=== PATIENT | male | born 1970 | race Caucasian/White ===

== ENCOUNTER 2019-10-13 15:45 | Outpatient (CLI) | payer OTHER, SELFPAY ==
--- NOTE | 2019-10-13 | XR_ITS ---
WS: [id number] RIGHT FOOT: 3 VIEW(S) TECHNIQUE: PA, oblique and lateral. HISTORY: RIGHT FOOT SPRAIN COMPARISON: 08/10/2017 No acute fracture or dislocation. Spurring along the dorsal surface of the anterior talar process. Normal tarsal/metatarsal alignment. Mild soft tissue edema at the ankle. XR/XR foot RT min 3V* [id number] IMPRESSION: Mild soft tissue edema at the ankle. Foot is negative for fracture or interrupt ion of the Lisfranc joint.
== END 2019-10-13 15:46 | disposition home or self-care (01) ==
LOC: RADOUTREAD 10-14 07:28
PROVIDERS: Family Provider Family Medicine; Visit Provider Family Medicine
DX: S93.601A Unspecified sprain of right foot, initial encounter (principal); W01.0XXA Fall on same level from slipping, tripping and stumbling without subsequent striking against object, initial encounter

== ENCOUNTER → 2020-08-14 12:20 | Outpatient (BNVA) | payer OTHER, SELFPAY | PROVIDERS: Family Provider Family Medicine; Visit Provider Specialist | DX: G56.03 Carpal tunnel syndrome, bilateral upper limbs (principal); R20.0 Anesthesia of skin; R20.2 Paresthesia of skin | CPT/HCPCS: 95910 ==

== ENCOUNTER 2020-12-18 12:52 | Observation (INO) | payer BC, SELFPAY ==
[2020-12-18] VITALS (8 sets, daily range): BP systolic 119–140; BP diastolic 85–99; PULSE 85–104; RESP 16–20; TEMP 37–37.3; O2SAT 95–100; BMI 35.3
--- NOTE | 2020-12-18 13:23 | ED_ITS ---
HPI - SOB/Dyspnea General: Chief Complaint: Shortness of Breath/Dyspnea Stated Complaint: Sent from for SOB Time Seen by Provider: 12/18/20 13:13 History of Present Illness: HPI Narrative: 50 year old male presents to the ED from [facility] due to elevated d-dimer of 8.2 and SOB. Patient complaining of shortness of breath on exertion for the past week. He states he did have a fever 8-9 days ago. He currently denies chest pain, fever, vomiting, or leg pain. Tested negative for COVID today on a rapid antigen test MD elicited complaint: shortness of breath Onset (ago): week(s) (one) Context: occurred during exertion Timing: other (on exertion) Exacerbating factors: exertion and movement Relieving factors: rest Associated symptoms: Reports no associated symptoms; Deny abdominal pain, chest pain, fever(s), nausea or vomiting Review of Systems Const: Denies: fever(s) Card: Denies: chest pain Resp: Denies: productive cough or non-productive cough GI: Denies: abdominal pain, nausea, vomiting, hematemesis or coffee ground emesis : Denies: flank pain, urinary frequency or urinary urgency [facility] ED PFSH: Medical History (Updated 12/18/20 @ 15:16 by Meenakshi Aceves MD) Former smoker Numbness and tingling in both hands Physical Exam Const: COMMON NORMALS: no acute distress GENERAL APPEARANCE: cooperative and comfortable ORIENTATION/CONSCIOUSNESS: Yes awake, Yes oriented to person, Yes oriented to place and Yes oriented to time HENMT: COMMON NORMALS: normocephalic, atraumatic and hearing grossly normal bilaterally HEAD & SCALP: normocephalic and atraumatic Resp: COMMON NORMALS: normal respiratory effort, No retractions, No use of accessory muscles and clear to auscultation bilaterally AUSCULTATION: clear to auscultation bilaterally Cardio: COMMON NORMALS: regular rate, regular rhythm and No murmurs present (Cardio) RATE: regular rate RHYTHM: regular rhythm GI: COMMON NORMALS: Soft to palpation AUSCULTATION: Yes normoactive bowel sounds PALPATION: Yes Soft to palpation, No Tenderness to palpation present (GI) and No Guarding due to palpation present (GI) Extremity: COMMON NORMALS: no calf tenderness Neuro: SENSORIUM/ORIENTATION: Yes oriented to person, Yes oriented to place and Yes oriented to time Skin: COMMON NORMALS: no rashes or lesions noted GENERAL SKIN EXAM: no rashes or lesions noted Course Vital Signs: Vital signs: Vital Signs Temperature 98.6 F 12/18/20 13:00 Pulse Rate 98 12/18/20 14:55 Respiratory Rate 18 12/18/20 14:55 Blood Pressure 119/85 12/18/20 14:55 Pulse Oximetry 99 12/18/20 14:55 MDM - SOB/Dyspnea MDM Narrative: Medical decision making narrative: Patient has fairly extensive right-sided clot burden. Nothing that is a saddle emboli do not believe he needs a embolectomy. We will go ahead and heparinize him admit would need to be transitioned to oral anticoagulation at some point echo and venous duplex of lower extremities. Patient had a fever about 8 or 9 days ago since possible that this is a post Covid event is also possible as a result of incapacitation from a knee injection that he had in late October. At that time he had a stem cell injection in the left knee he had a lot of swelling and was light up for 5 days states since then that leg has been aching. Stuck to Dr. Aceves and patient's orders are written. Lab Data: Labs: Lab Results 12/18/20 12/18/20 12/18/20 Range/Units 13:18 13:18 13:18 WBC 10.0 (4.0-10.0) 10^3/ uL RBC 5.07 (4.1-5.3) 10^6/u L Hgb 15.2 (11.7-16.6) g/dL Hct 45.0 (42.0-52.0) % MCV 88.8 (80-94) fL MCH 30.0 (28.0-34.0) pg MCHC 33.8 (30.0-36.0) g/dL RDW 12.2 (12.1-15.1) % Plt Count 259 (130-400) 10^3/c mm MPV 11.3 H (7.4-10.4) fL Neut % (Auto) 70.5 % Lymph % (Auto) 18.1 % York % (Auto) 8.6 % Eos % (Auto) 1.6 % Baso % (Auto) 0.6 % Neut # (Auto) 7.04 (1.8-7.7) 10^3/u L Lymph # (Auto) 1.8 (0.8-4.8) 10^3/u L York # (Auto) 0.9 (0.2-0.9) 10^3/u L Eos # (Auto) 0.2 (0.0-0.8) 10^3/u L Baso # (Auto) 0.1 (0.0-0.1) 10^3/u L Nucleated RBC % (a uto) 0 % Nucleated RBCs # 0.0 /100WBC PT 14.00 (12.1-14.9) SECO NDS INR 1.05 (0.8-1.2) APTT 29.1 (23.9-36.7) SECO NDS Specimen Type Sample Site ABG pH (7.35-7.45) ABG pCO2 (35-45) mmHg ABG pO2 (80.0-100.0) mmH g ABG HCO3 (22-26) mmol/L ABG O2 Saturation ABG Base Excess (-2.0-2.0) mmol/ L Jimbo Test A-a O2 Gradient (5-10) mmHg Hematocrit (42-52) % Hgb O2 Saturation (95-100) % Carboxyhemoglobin (0.4-20.1) %THgb Methemoglobin (0.4-1.5) % Total Hemoglobin (14-18) g/dL Ionized Calcium (1.1-1.4) mmol/L O2 Delivery Device FiO2 % Asset Recovery Specialist ID Sodium 138 (136-145) mmol/L Potassium 4.2 (3.5-5.1) mmol/L Chloride 101 (98-107) mmol/L Carbon Dioxide 27 (22-29) mmol/L Anion Gap 14.2 (5-19) BUN 17 (6-20) mg/dL Creatinine 1.0 (0.7-1.2) mg/dL GFR Calculation 79.8 L (90-130) mL/min Glucose 88 (65-115) mg/dL Calculated Osmolal ity 287 (285-295) mOsm/k g Calcium 9.1 (8.5-10.5) mg/dL Total Bilirubin 0.7 (0.15-1.2) mg/dL AST 23 (0-40) U/L ALT 27 (0-41) U/L Alkaline Phosphata se 54 (40-130) IU/L Total Protein 7.3 (6.6-8.7) g/dL Albumin 4.3 (3.5-5.2) g/dL Globulin 3.0 (1.3-4.6) g/dL 12/18/20 Range/Units 13:48 WBC (4.0-10.0) 10^3/ uL RBC (4.1-5.3) 10^6/u L Hgb (11.7-16.6) g/dL Hct (42.0-52.0) % MCV (80-94) fL MCH (28.0-34.0) pg MCHC (30.0-36.0) g/dL RDW (12.1-15.1) % Plt Count (130-400) 10^3/c mm MPV (7.4-10.4) fL Neut % (Auto) % Lymph % (Auto) % York % (Auto) % Eos % (Auto) % Baso % (Auto) % Neut # (Auto) (1.8-7.7) 10^3/u L Lymph # (Auto) (0.8-4.8) 10^3/u L York # (Auto) (0.2-0.9) 10^3/u L Eos # (Auto) (0.0-0.8) 10^3/u L Baso # (Auto) (0.0-0.1) 10^3/u L Nucleated RBC % (a uto) % Nucleated RBCs # /100WBC PT (12.1-14.9) SECO NDS INR (0.8-1.2) APTT (23.9-36.7) SECO NDS Specimen Type Arterial Sample Site Radial, left ABG pH 7.44 (7.35-7.45) ABG pCO2 36.8 (35-45) mmHg ABG pO2 69.7 L (80.0-100.0) mmH g ABG HCO3 25.0 (22-26) mmol/L ABG O2 Saturation 95.2 ABG Base Excess 1.1 (-2.0-2.0) mmol/ L Jimbo Test Pos A-a O2 Gradient 4.3 L (5-10) mmHg Hematocrit 44.1 (42-52) % Hgb O2 Saturation 93.9 L (95-100) % Carboxyhemoglobin 1.0 (0.4-20.1) %THgb Methemoglobin 0.4 (0.4-1.5) % Total Hemoglobin 14.4 (14-18) g/dL Ionized Calcium 1.2 (1.1-1.4) mmol/L O2 Delivery Device Room air FiO2 21.0 % Asset Recovery Specialist ID Cak Sodium 136.0 (136-145) mmol/L Potassium 4.1 (3.5-5.1) mmol/L Chloride (98-107) mmol/L Carbon Dioxide (22-29) mmol/L Anion Gap (5-19) BUN (6-20) mg/dL Creatinine (0.7-1.2) mg/dL GFR Calculation (90-130) mL/min Glucose 84.0 (65-115) mg/dL Calculated Osmolal ity (285-295) mOsm/k g Calcium (8.5-10.5) mg/dL Total Bilirubin (0.15-1.2) mg/dL AST (0-40) U/L ALT (0-41) U/L Alkaline Phosphata se (40-130) IU/L Total Protein (6.6-8.7) g/dL Albumin (3.5-5.2) g/dL Globulin (1.3-4.6) g/dL Discharge Plan Discharge Patient Disposition: Admitted As Inpatient Clinical Impression: Pulmonary embolism Condition: Stable Coding Level of Care Code ED Healthcare Educator for Chg Fwd Exam Detailed
--- NOTE | 2020-12-18 13:33 | CT_ITS ---
WS: [id number] CTA OF THE CHEST WITH PULMONARY EMBOLISM PROTOCOL TECHNIQUE: High-resolution contrast enhanced CTA of the chest with coronal and sagittal reformatted i mages with pulmonary embolism protocol. MIP images are also reviewed. CLINICAL INFORMATION: dyspna COMPARISON: CTA chest August 15, 2017 DLP: 1344.[address] scans at [facility] use at least one of these dose optimization techniques: automat ed exposure control; mA and/or kV adjustment per patient size (includes targeted exams where dose is matched to clinical indication); or iterative reconstruction. FINDINGS: Proximal main pulmonary arteries are normal. Filling defects in the distal right main pulmonary arter y and segmental and subsegmental pulmonary arteries bilaterally worse in the right lung and left lowe r lobe. Findings compatible with diffuse bilateral pulmonary emboli. Normal caliber thoracic aorta. N o pulmonary infarcts. No evidence of right heart strain. Lungs are well aerated. No acute pulmonary infiltrates. No focal pneumonia or pleural fluid. No medi astinal or hilar lymphadenopathy. No axillary lymphadenopathy. Adrenal glands are normal. Normal GE j unction. Gallbladder is contracted. CT/CT angio chest PE protcl [id number] IMPRESSION: 1. Extensive bilateral pulmonary emboli in the distal right main pulmonary art feliciano extending into the segmental and subsegmental pulmonary arteries bilaterall y. No evidence of saddle embolus. 2. No pulmonary infarcts. No evidence of right heart strain. 3. Lungs are well aerated. No acute pulmonary infiltrates. 4. No other significant findings. Notified Masood Peralta DO at 12/18/2020 2:39 PM.
[2020-12-18 14:00] LABS: Blood Gas Allen Test Pos; Blood Gas Operator Identificat CAK; Blood Gas Sample Site Radial, left; Blood Gas Sample Type Arterial; Ionized Calcium Level - ABG 1.2 mmol/L (1.1-1.4); Methemoglobin 0.4 % (0.4-1.5); Oxygen Device ROOM AIR
[2020-12-18] MEDS: iohexol 350 mg/mL 100 mL Btl IV ×2 (14:11→14:12)
[2020-12-18 14:16] LABS: ABG PCO2 36.8 mmHg (35-45); ABG PH Result 7.44 (7.35-7.45); Alveolar-Arterial Oxygen Gradi 4.3 mmHg (5-10); Arterial Blood Gas Hematocrit 44.1 % (42-52); Base Excess ABG 1.1 mmol/L (-2.0-2.0); HGB O2 Sat 93.9 % (95-100); Oxygen Saturation ABG 95.2; PO2 ABG 69.7 mmHg (80.0-100.0); Potassium Level - ABG 4.1 mmol/L (3.5-5.0); Total Hemoglobin 14.4 g/dL (14-18)
[2020-12-18 14:34] LABS: Basophils # 0.1 10^3/uL (0.0-0.1); Basophils % 0.6 %; Eosinophils # 0.2 10^3/uL (0.0-0.8); Eosinophils % 1.6 %; Hemoglobin 15.2 g/dL (11.7-16.6); Lymphocytes # 1.8 10^3/uL (0.8-4.8); Lymphocytes % 18.1 %; Mean Corpuscular HGB Conc 33.8 g/dL (30.0-36.0); Mean Corpuscular Volume 88.8 fL (80-94); Mean Platelet Volume 11.3 fL (7.4-10.4); Monocytes # 0.9 10^3/uL (0.2-0.9); Monocytes % 8.6 %; Neutrophils # 7.04 10^3/uL (1.8-7.7); Neutrophils % 70.5 %; Nucleated Red Blood Cells % 0 %; Platelet Count 259 10^3/cmm (130-400); Red Blood Count 5.07 10^6/uL (4.1-5.3); Red Cell Distribution Width 12.2 % (12.1-15.1)
[2020-12-18 14:47] LABS: Alanine Aminotransferase 27 U/L (0-41); Albumin Level 4.3 g/dL (3.5-5.2); Alkaline Phosphatase 54 IU/L (40-130); Anion Gap 14.2 (5-19); Aspartate Amino Transferase 23 U/L (0-40); Blood Urea Nitrogen 17 mg/dL (6-20); Calcium 9.1 mg/dL (8.5-10.5); Carbon Dioxide 27 mmol/L (22-29); Chloride 101 mmol/L (98-107); Glomerular Filtration Rate 79.8 mL/min (90-130); Glucose 88 mg/dL (65-115); Osmolality Calculated 287 mOsm/kg (285-295); Potassium 4.2 mmol/L (3.5-5.1); Sodium 138 mmol/L (136-145); Total Bilirubin 0.7 mg/dL (0.15-1.2); Total Protein 7.3 g/dL (6.6-8.7)
[2020-12-18] MEDS: heparin 5,000 unit/mL INJ 1 mL IV (14:50)
[2020-12-18] MEDS: heparin drip 25,000 UNIT/500 ML PREMIX 31.2 UNIT IV (14:51)
[2020-12-18 15:06] LABS: INR 1.05 (0.8-1.2)
[2020-12-18 15:07] LABS: Partial Thromboplastin Time 29.1 SECONDS (23.9-36.7)
--- NOTE | 2020-12-18 15:14 | P.HP_ITS ---
Providers/Chief Complaint Primary Care Provider: Manolo Norris MD Chief Complaint: Sent from for SOB History of Present Illness Camacho Zuleta is a 50 year old male who does not have significant past medical history other than hypertension presented today with chief complaint of shortness of breath. Patient went to urgent care clinic for chief complaint of shortness of breath today. Patient is stating that for last several days he has been experiencing shortness of breath on exertion and for 7 days he noticed low- grade fever as well no one else is sick at home, Covid antigen was negative at the clinic today. No productive cough, diarrhea chest pain orthopnea or PND. Patient is stating that on October 18 he received stem cell injection in the left knee and after that he was immobile for about 2 weeks and was not able to move his leg at all because of swelling after the injection. He noticed pain in his calf muscle around the midpoint which was radiating towards his knee and then he started feeling pain above his knee. He made his sports medicine doctor aware of this pain however no Doppler was requested at that time. He is also endorsing history of clotting disorder in the family his father is on Coumadin however never had any diagnosis of factor V Leyden mutation. He is stating that he recently changed his diet and lost about 10 pounds as well in last 1 month, and he also noticed night sweats in last 48 hours. Otherwise he is leading a very active lifestyle he works with [employer]. Diagnosis in the ER revealed high D-dimer CT revealed high clot burden for bilateral PE, I have requested BNP and troponin, venous Doppler echo has been requested patient was symptomatic free saturating well on room air. Considering high clot burden he was admitted and was started on heparin drip. Review of Systems Const: Denies: fever(s) or chills Eyes: Denies: change in vision ENMT: Denies: throat pain Card: Denies: chest pain Resp: Denies: non-productive cough GI: Denies: abdominal pain or hematemesis : Denies: flank pain Musc: Denies: neck pain Skin/Breast: Denies: rash Neuro: Denies: headache(s) Psych: Denies: anxiety Endo: Denies: polyuria Neo/Lymph: Denies: easy bruising All/Imm: Denies: urticaria Medications/Allergies Home Medications Medication Instructions Recorded Confirmed Last Taken Type lisinopril 10 mg tablet 10 mg PO QAM 08/14/20 12/18/20 12/18/20 06:30 History cetirizine 10 mg PO QAM 12/18/20 12/18/20 12/18/20 06:30 History ibuprofen 400 mg PO PRN 12/18/20 12/18/20 Unknown History Allergies Allergy/AdvReac Type Severity Reaction Status Date / Time No Known Allergies Allergy Verified 12/18/20 13:32 PFSH Acute PFSH: Medical History (Updated 12/18/20 @ 17:01 by Meenakshi Aceves MD) Former smoker Hypertension Left knee pain Status post stem cell injection on October 18 by sports medicine Numbness and tingling in both hands Surgical History (Updated 12/18/20 @ 17:02 by Meenakshi Aceves MD) No pertinent past surgical history Family History (Updated 12/18/20 @ 17:02 by Meenakshi Aceves MD) Father Clotting disorder On Coumadin Social History (Updated 12/18/20 @ 17:02 by Meenakshi Aceves MD) Smoking and tobacco status: former smoker Alcohol intake: never Household members: spouse Housing: House Marital status: Current occupational status: employed Current occupation: Works for [employer] Vitals/I&O/Wt Last Vital Signs Temp 98.6 F 12/18/20 13:00 Pulse 98 12/18/20 14:55 Resp 18 12/18/20 14:55 BP 119/85 12/18/20 14:55 Pulse Ox 99 12/18/20 14:55 Weight last 48 hrs Weight 111.584 kg Physical Exam Narrative: EXAM NARRATIVE: Middle-age male Currently saturating well on room air No active discomfort S1-S2 no murmur appreciated Bilateral breath sounds without adventitious rhonchi or crackles no edema cooperative Abdomen soft nontender bowel sound present No joint swelling No calf tenderness Muscular, and obese Appropriate mood and affect EOMI, PERRLA GCS 15 Data : 12/18/20 13:18 12/18/20 13:18 A&P Assessment and plan (1) Pulmonary embolism: Status: Acute Additional A&P Information Provoked pulmonary embolism Patient led a sedentary lifestyle for 2 weeks after getting the injection, he is also complaining of calf muscle pain I do believe his symptoms started at that point and that is why he has such a huge clot burden with bilateral PEs rule out right heart strain with echo and will request BNP and troponin currently chest pain-free hemodynamically stable for support of preload I will keep him on normal saline at lower rate Start him on heparin On the day of discharge we will switch to Eliquis 10 twice daily and then 5 mg twice a day after 10 days Patient does endorse history of clots in his father he has older siblings who are fine, I am recommending him to follow-up with bed control specialist for now we are treating him for provoked pulmonary embolism for minimum of 6 months, he will need repeat imaging and follow-up with bed control specialist in order to decide whether he would need hypercoagulable work-up and long-term anticoagulation Covid PCR sent which is also associated with hypercoagulable state however Covid antigen negative History of hypertension: Currently normotensive continue lisinopril Regular diet DVT prophylaxis currently on heparin drip Full code Attestations Medical Necessity Statement*: Anticipating stay in the hospital cross more than 2 midnight currently he is on heparin drip for increased clot burden for symptomatic PE Time Spent in Patient Care: (>than 50% of time spent in counselling and/or direct pt care on unit) . 40mins Coding Level of Care Code Acute Exceptional Children Teacher for Kamran Ching Diagnoses Pulmonary embolism I26.99
--- NOTE | 2020-12-18 15:43 | PC.NURSE ---
COVID swab sent to lab at this time.
[2020-12-18 15:51] LABS: Troponin(5th) Baseline 8 ng/L (0-15)
[2020-12-18 15:58] LABS: NT Pro B Type Natriuretic Pept 29 pg/mL (0-125)
[2020-12-18 17:09] LABS: Troponin 5 2HR 8.06 ng/L (0-15); Troponin 5 2HR Delta 0.06 ABS# (0-10)
[2020-12-18 17:21] LABS: Thyroid Stimulating Hormone 0.28 uIU/mL (0.27-4.20)
[2020-12-18 17:56] LABS: Erythrocyte Sedimentation Rate 11 mm/hr (0-10)
[2020-12-18] MEDS: sodium chloride 0.9% 1,000 ML 30 ML IV (19:09)
--- NOTE | 2020-12-18 21:18 | ECG_ITS ---
[facility] Test Date: 2020-12-18 Pat Name: Camacho Zuleta Department: Room: Gender: Male Aws Architect: : 1970 Requested By: Meenakshi Aceves Order Number: [id number] Lala MD: Maribel Oakes M.D. Measurements Intervals [place] Rate: 101 P: 36 MN: 160 QRS: -18 QRSD: 88 T: 5 QT: 334 QTc: 434 Interpretive Statements SINUS TACHYCARDIA MODERATE VOLTAGE CRITERIA FOR LVH, CONSIDER NORMAL VARIANT [MEETS CRITERIA IN ONE OF: R(aVL), S(V1), R(V5), R(V5/V6)+S(V1)] Compared to ECG 08/15/2017 22:49:19 Sinus rhythm no longer present Electronically Signed On 12-19-2020 7:45:57 CDT by Maribel Oakes M.D. [id number]
[2020-12-19] VITALS: BP 125/87; PULSE 86; RESP 17; TEMP 36.8; O2SAT 95
[2020-12-19 03:56] VITALS: BP 132/86; PULSE 79; RESP 17; TEMP 36.8; O2SAT 96
[2020-12-19 04:10] LABS: Partial Thromboplastin Time 82.4 SECONDS (23.9-36.7)
--- NOTE | 2020-12-19 05:00 | USCV_ITS ---
Camacho Zuleta Age: 50 Gender: M : 1970 Exam Date: 12/19/2020 07:19 Ordering Phys: Masood Peralta DO Technologist: Ángel Parsons Exam Location: [facility] [place] Indication: PE HISTORY: Edema. PROCEDURES: The venous duplex Doppler examination of both lower extremities was performed in the standard fashion. The following venous structures were evaluated: common femoral vein, profunda vein, proximal portion of the greater saphenous vein, superficial femoral vein, and the popliteal vein. FINDINGS: DVT LT POP AND LT PERINEAL CONCLUSIONS Acute occlusive DVT left popliteal and left peroneal Normal Right Lower extremity Solitario Vegas MD (Electronically Signed) Final Date: 19 December 2020 09:41 S
--- NOTE | 2020-12-19 05:00 | USCV_ITS ---
Camacho Zuleta Age: 50 Gender: M : 1970 Exam Date: 12/19/2020 07:03 Ordering Phys: Masood Peralta DO Technologist: Ángel Parsons [place] [facility] [place]: PE BP: 145 / 84 HR: 78 Rhythm: Sinus Technical Quality: Fair MEASUREMENTS (Male / Female) Normal Values 2D ECHO LV Diastolic Diameter PLAX 5.0 cm 4.2 - 5.9 / 3.9 - 5.3 cm LV Systolic Diameter PLAX 3.3 cm IVS Diastolic Thickness 1.3 cm 0.6 - 1.0 / 0.6 - 0.9 cm IVS Systolic Thickness 1.2 cm LVPW Diastolic Thickness 1.2 cm 0.6 - 1.0 / 0.6 - 0.9 cm LVPW Systolic Thickness 1.2 cm LVOT Diameter 2.1 cm LV Ejection Fraction 2D Teich 61.5 % LA Diameter 3.7 cm LA Width 3.9 cm LA Height 5.8 cm RA Width 3.2 cm RA Height 5.4 cm M-MODE LV Diastolic Diameter MM 5.6 cm 4.2 - 5.9 / 3.9 - 5.3 cm LV Systolic Diameter MM 2.9 cm LV Ejection Fraction MM Teich 79.6 % IVS Diastolic Thickness MM 1.1 cm 0.6 - 1.0 / 0.6 - 0.9 cm IVS Systolic Thickness MM 2.0 cm LVPW Diastolic Thickness MM 1.0 cm 0.6 - 1.0 / 0.6 - 0.9 cm LVPW Systolic Thickness MM 1.9 cm RV Diastolic Diameter MM 1.8 cm Aortic Annulus Diameter 3.5 cm LA Ao Ratio MM 1.1 MV E Point Septal Separation 0.7 cm DOPPLER AV Peak Velocity 124.0 cm/s LVOT Peak Velocity 98.0 cm/s AV Area Cont Eq vti 2.4 cm squared AV Area Cont Eq pk 2.7 cm squared MV Area PHT 5.0 cm squared Mitral E to A Ratio 1.1 MV E' Velocity 48.0 cm/s Mitral E to MV E' Ratio 7.4 Mitral E to LV E' Lateral Ratio 6.0 Mitral E to LV E' Septal Ratio 9.8 TR Peak Velocity 129.5 cm/s TR Peak Gradient 6.7 mmHg TV Peak E Velocity 83.0 cm/s Right Atrial Pressure 3.0 mmHg Pulmonary Artery Systolic Pressu 9.7 mmHg FINDINGS Left Ventricle Normal left ventricular cavity size. Normal left ventricular systolic function. No regional wall motion abnormalities. Left ventricular ejection fraction is estimated at 65 %. Grade I/IV diastolic dysfunction (abnormal relaxation filling pattern), normal to mildly elevated filling pressures. Right Ventricle The right ventricle is normal in size and function. Right Atrium The right atrium is normal in size. Left Atrium The left atrium is normal in size. Mitral Valve Moderately thickened mitral valve. Moderate mitral annular calcification. No mitral valve stenosis. No mitral valve regurgitation. Aortic Valve Moderate aortic valve calcification. No aortic valve stenosis. No aortic valve regurgitation. Tricuspid Valve Structurally normal tricuspid valve without significant stenosis or regurgitation. Pulmonary artery systolic pressure is normal. Pulmonic Valve Structurally normal pulmonic valve without significant stenosis. There is no pulmonic regurgitation. Pericardium Normal pericardium without effusion. Aorta Normal ascending aorta dimension. CONCLUSIONS 1-Normal left ventricular cavity size. Normal left ventricular systolic function. No regional wall motion abnormalities. Left ventricular ejection fraction is estimated at 65 %. Grade I/IV diastolic dysfunction (abnormal relaxation filling pattern), normal to mildly elevated filling pressures. 2-Moderate aortic valve calcification. No aortic valve stenosis. No aortic valve regurgitation. 3-Moderately thickened mitral valve. Moderate mitral annular calcification. No mitral valve stenosis. No mitral valve regurgitation. 4-There is no pericardial effusion. 5-Pulmonary artery systolic pressure is within normal limits. 6-Right atrial pressure is around 5 mm of mercury. 7-There are no prior echocardiogram studies to compare. Meenakshi Crow MD (Electronically Signed) Final Date: 19 December 2020 20:25 S
[2020-12-19] MEDS: cetirizine 10 mg Tablet PO (05:56)
[2020-12-19] MEDS: lisinopril 10 mg Tablet PO (05:56)
[2020-12-19] MEDS: heparin drip 25,000 UNIT/500 ML PREMIX 29 UNIT IV (07:05)
[2020-12-19 07:55] VITALS: BP 130/88; PULSE 81; RESP 17; TEMP 36.8; O2SAT 96
[2020-12-19 10:47] LABS: Partial Thromboplastin Time 63.7 SECONDS (23.9-36.7)
--- NOTE | 2020-12-19 11:22 | PM.DCS ---
Discharge Providers Date of Admission: 12/18/20 15:14 Date of Discharge: December 19, 2020 Attending Provider at Admission: Meenakshi Aceves MD Attending Provider at Discharge: Meenakshi Aceves MD Primary Care Provider: Manolo Norris MD Diagnoses at Discharge Discharge Diagnosis (1) Pulmonary embolism: Status: Acute (2) DVT (deep venous thrombosis): Status: Acute Permanent problem details: Popliteal and peroneal, Left side Reason for Visit Reason for Visit: Sent from for SOB Hospital Course Hospital Course Camacho Zuleta is a 50 year old male who does not have significant past medical history other than hypertension presented today with chief complaint of shortness of breath. Patient went to urgent care clinic for chief complaint of shortness of breath today. Patient is stating that for last several days he has been experiencing shortness of breath on exertion and for 7 days he noticed low-grade fever as well no one else is sick at home, Covid antigen was negative at the clinic today. No productive cough, diarrhea chest pain orthopnea or PND. Patient is stating that on October 18 he received stem cell injection in the left knee and after that he was immobile for about 2 weeks and was not able to move his leg at all because of swelling after the injection. He noticed pain in his calf muscle around the midpoint which was radiating towards his knee and then he started feeling pain above his knee. He made his sports medicine doctor aware of this pain however no Doppler was requested at that time. He is also endorsing history of clotting disorder in the family his father is on Coumadin however never had any diagnosis of factor V Leyden mutation. He is stating that he recently changed his diet and lost about 10 pounds as well in last 1 month, and he also noticed night sweats in last 48 hours. Otherwise he is leading a very active lifestyle he works with [employer]. Diagnosis in the ER revealed high D-dimer CT revealed high clot burden for bilateral PE, I have requested BNP and troponin, venous Doppler echo has been requested patient was symptomatic free saturating well on room air. Considering high clot burden he was admitted and was started on heparin drip. Hospital course: Patient did well with heparin anticoagulation, he did not require any oxygenation, he is low risk for COVID-19 pneumonia, Doppler of left lower extremity revealed DVT of left peroneal and popliteal vessels, BNP not remarkable troponins were not significantly high which would qualify him for symptomatic pulmonary embolism. No signs of submassive PE. This is a provoked pulmonary embolism due to his recent sedentary 2 weeks after stem cell injection in left knee, considering high clot burden I am recommending Eliquis 10 twice daily for 10 days and then 5 mg for at least 6 months, follow-up with radiation safety officer to see if he would require hypercoagulable work-up Physical Exam Narrative: EXAM NARRATIVE: Middle-age male morbidly obese Saturating well on room air S1, S2 no murmur no heart failure EOMI, PERRLA No neurological deficit Abdomen soft nontender bowel sounds present Low symmetry no edema gangrene ulcer No active tenderness of calf muscle Discharge Data Data Completed and Pending: Completed Studies During Hospitalization Category Date Time Status CT angio chest PE protcl [id number] Stat Cat Scan 12/18/20 13:33 [place] [id number] Routin e Ultrasound 12/19/20 05:00 Completed Pending at discharge Category Date Time Status Coronavirus Test [facility] Lab 12/18/20 16:38 Received Platelet Count Q2 D Lab 12/20/20 04:00 Ordered Platelet Count Q2 D Lab 12/22/20 04:00 Ordered CV echo complete* [id number] Routine Ultrasound 12/19/20 05:00 Taken Labs from last 24 hours 12/19/20 12/19/20 12/18/20 10:28 03:31 20:47 WBC RBC Hgb Hct MCV MCH MCHC RDW Plt Count MPV Neut % (Auto) Lymph % (Auto) [place] % (Auto) Eos % (Auto) Baso % (Auto) Neut # (Auto) Lymph # (Auto) [place] # (Auto) Eos # (Auto) Baso # (Auto) Nucleated RBC % (a uto) Nucleated RBCs # ESR PT INR APTT 63.7 H 82.4 H 70.0 H D Specimen Type Sample Site ABG pH ABG pCO2 ABG pO2 ABG HCO3 ABG O2 Saturation ABG Base Excess Jimbo Test A-a O2 Gradient Hematocrit Hgb O2 Saturation Carboxyhemoglobin Methemoglobin Total Hemoglobin Ionized Calcium O2 Delivery Device FiO2 Stretcher Leveler Operator Helper ID Sodium Potassium Chloride Carbon Dioxide Anion Gap BUN Creatinine GFR Calculation Glucose Calculated Osmolal ity Calcium Total Bilirubin AST ALT Alkaline Phosphata se Troponin T Baselin e Troponin T 120 Min [place] Troponin T NT-Pro-B Natriuret Pep Total Protein Albumin Globulin TSH Nasal/Oral COVID-1 9 PCR 12/18/20 12/18/20 12/18/20 16:38 15:40 13:48 WBC RBC Hgb Hct MCV MCH MCHC RDW Plt Count MPV Neut % (Auto) Lymph % (Auto) [place] % (Auto) Eos % (Auto) Baso % (Auto) Neut # (Auto) Lymph # (Auto) [place] # (Auto) Eos # (Auto) Baso # (Auto) Nucleated RBC % (a uto) Nucleated RBCs # ESR PT INR APTT Specimen Type Arterial Sample Site Radial, left ABG pH 7.44 ABG pCO2 36.8 ABG pO2 69.7 L ABG HCO3 25.0 ABG O2 Saturation 95.2 ABG Base Excess 1.1 Jimbo Test Pos A-a O2 Gradient 4.3 L Hematocrit 44.1 Hgb O2 Saturation 93.9 L Carboxyhemoglobin 1.0 Methemoglobin 0.4 Total Hemoglobin 14.4 Ionized Calcium 1.2 O2 Delivery Device Room air FiO2 21.0 Stretcher Leveler Operator Helper ID Cak Sodium 136.0 Potassium 4.1 Chloride Carbon Dioxide Anion Gap BUN Creatinine GFR Calculation Glucose 84.0 Calculated Osmolal ity Calcium Total Bilirubin AST ALT Alkaline Phosphata se Troponin T Baselin e Troponin T 120 Min [place] 8.06 Delta Troponin T 0.06 NT-Pro-B Natriuret Pep Total Protein Albumin Globulin TSH Nasal/Oral COVID-1 9 PCR Pending 12/18/20 12/18/20 12/18/20 13:18 13:18 13:18 WBC RBC Hgb Hct MCV MCH MCHC RDW Plt Count MPV Neut % (Auto) Lymph % (Auto) [place] % (Auto) Eos % (Auto) Baso % (Auto) Neut # (Auto) Lymph # (Auto) [place] # (Auto) Eos # (Auto) Baso # (Auto) Nucleated RBC % (a uto) Nucleated RBCs # ESR 11 H PT INR APTT Specimen Type Sample Site ABG pH ABG pCO2 ABG pO2 ABG HCO3 ABG O2 Saturation ABG Base Excess Jimbo Test A-a O2 Gradient Hematocrit Hgb O2 Saturation Carboxyhemoglobin Methemoglobin Total Hemoglobin Ionized Calcium O2 Delivery Device FiO2 Stretcher Leveler Operator Helper ID Sodium Potassium Chloride Carbon Dioxide Anion Gap BUN Creatinine GFR Calculation Glucose Calculated Osmolal ity Calcium Total Bilirubin AST ALT Alkaline Phosphata se Troponin T Baselin e Troponin T 120 Min [place] Troponin T NT-Pro-B Natriuret Pep 29 Total Protein Albumin Globulin TSH 0.28 Nasal/Oral COVID-1 9 PCR 12/18/20 12/18/20 12/18/20 13:18 13:18 13:18 WBC 10.0 RBC 5.07 Hgb 15.2 Hct 45.0 MCV 88.8 MCH 30.0 MCHC 33.8 RDW 12.2 Plt Count 259 MPV 11.3 H Neut % (Auto) 70.5 Lymph % (Auto) 18.1 [place] % (Auto) 8.6 Eos % (Auto) 1.6 Baso % (Auto) 0.6 Neut # (Auto) 7.04 Lymph # (Auto) 1.8 [place] # (Auto) 0.9 Eos # (Auto) 0.2 Baso # (Auto) 0.1 Nucleated RBC % (a uto) 0 Nucleated RBCs # 0.0 ESR PT INR APTT Specimen Type Sample Site ABG pH ABG pCO2 ABG pO2 ABG HCO3 ABG O2 Saturation ABG Base Excess Jimbo Test A-a O2 Gradient Hematocrit Hgb O2 Saturation Carboxyhemoglobin Methemoglobin Total Hemoglobin Ionized Calcium O2 Delivery Device FiO2 Stretcher Leveler Operator Helper ID Sodium 138 Potassium 4.2 Chloride 101 Carbon Dioxide 27 Anion Gap 14.2 BUN 17 Creatinine 1.0 GFR Calculation 79.8 L Glucose 88 Calculated Osmolal ity 287 Calcium 9.1 Total Bilirubin 0.7 AST 23 ALT 27 Alkaline Phosphata se 54 Troponin T Baselin e 8 Troponin T 120 Min [place] Troponin T NT-Pro-B Natriuret Pep Total Protein 7.3 Albumin 4.3 Globulin 3.0 TSH Nasal/Oral COVID-1 9 PCR 12/18/20 13:18 WBC RBC Hgb Hct MCV MCH MCHC RDW Plt Count MPV Neut % (Auto) Lymph % (Auto) [place] % (Auto) Eos % (Auto) Baso % (Auto) Neut # (Auto) Lymph # (Auto) [place] # (Auto) Eos # (Auto) Baso # (Auto) Nucleated RBC % (a uto) Nucleated RBCs # ESR PT 14.00 INR 1.05 APTT 29.1 Specimen Type Sample Site ABG pH ABG pCO2 ABG pO2 ABG HCO3 ABG O2 Saturation ABG Base Excess Jimbo Test A-a O2 Gradient Hematocrit Hgb O2 Saturation Carboxyhemoglobin Methemoglobin Total Hemoglobin Ionized Calcium O2 Delivery Device FiO2 Stretcher Leveler Operator Helper ID Sodium Potassium Chloride Carbon Dioxide Anion Gap BUN Creatinine GFR Calculation Glucose Calculated Osmolal ity Calcium Total Bilirubin AST ALT Alkaline Phosphata se Troponin T Baselin e Troponin T 120 Min [place] Troponin T NT-Pro-B Natriuret Pep Total Protein Albumin Globulin TSH Nasal/Oral COVID-1 9 PCR Addt'l Data from Hospital Stay: CTA: CT/CT angio chest PE protcl [id number] IMPRESSION: 1. Extensive bilateral pulmonary emboli in the distal right main pulmonary artery extending into the segmental and subsegmental pulmonary arteries bilaterally. No evidence of saddle embolus. 2. No pulmonary infarcts. No evidence of right heart strain. 3. Lungs are well aerated. No acute pulmonary infiltrates. 4. No other significant findings Venous Doppler study CONCLUSIONS Acute occlusive DVT left popliteal and left peroneal Normal Right Lower extrem Vitals: Last Vital Signs Temp 98.2 F 12/19/20 07:55 Pulse 81 12/19/20 07:55 Resp 17 12/19/20 07:55 BP 130/88 12/19/20 07:55 Pulse Ox 96 12/19/20 07:55 Discharge Plan Discharge Patient Disposition: Home Condition: Stable Prescriptions: New Eliquis DVT-PE Treat 30D Start 5 mg (74 tabs) tablets,dose pack See Rx Instructions .ROUTE .COMPLEX MDD 5mg Every 12 hours 30 Days Qty: 74 RF: 0 Eliquis 5 mg tablet 5 mg PO BID 90 Days Qty: 180 RF: 1 Continued lisinopril 10 mg tablet 10 mg PO QAM RF: 0 cetirizine 10 mg tablet 10 mg PO QAM RF: 0 ibuprofen 200 mg Tablet 400 mg PO PRN RF: 0 Discharge Orders: Discharge Order (Routine); Ordered 12/19/20 Ordered By: Meenakshi Aceves Referrals: Manolo Norris MD [Primary Care Provider] - 12/27/20 10:45 am Phillip Dean MD [Hospitalist] - 1 month (DVT AND PE FOLLOWUP ) Discharge Diet: As Directed and Cardiac Discharge Activity: Resume usual activity Patient Instructions: Apixaban (By mouth), Pulmonary Embolism (GEN), Deep Venous Thrombosis (DC) Activity Restrictions/Additional Instructions: You will take Eliquis 10 mg twice a day for 7 days and then onwards you will take 5 mg twice a day Side effect of Eliquis is sometimes GI bleeding, please watch for dark-colored stools, bleeding. Minimum duration is 3 months maximum 6 months, in the meantime please follow-up with radiation safety officer Dr. Dean(within a month) who will also scan your leg to see if your venous clot is resolving or getting worse Discharge Attestations Time Spent in Discharge Care*: less than 30 min Quality Metrics Clinical Quality Measures During this hospital stay, did patient experience: VTE Contraindication to Overlap Therapy: Overlap therapy prescribed VTE Discharge Education: Education about anticoagulant therapy/Care Notes given, Education about treatment options/disease process and Medication side effects education Deep Vein Thrombosis/Pulmonary Embolism Present on Admission: Yes Contraindication to Pharm VTE Prophylaxis: VTE prophylaxis given Coding Level of Care Code Acute [facility] note Diagnoses Pulmonary embolism I26.99 DVT (deep venous thrombosis) I82.409
[2020-12-19 11:26] VITALS: BP 121/81; PULSE 95; RESP 17; TEMP 36.6; O2SAT 95
[2020-12-19 14:10] LABS: Coronavirus Test Green County Not Detected
[2020-12-19 15:26] VITALS: BP 123/86; PULSE 93; RESP 18; TEMP 37.1; O2SAT 98
[2020-12-19 16:06] VITALS: BP 123/86; PULSE 93; RESP 18; TEMP 37.1; O2SAT 98
== END 2020-12-19 16:13 | disposition home or self-care (01) ==
LOC: ER 15:10 → MEDSURG 12-19 11:26
PROVIDERS: Admitting Provider Internal Medicine; Emergency Provider Family Medicine; PCP Family Medicine; Visit Provider Internal Medicine
DX: I26.99 Other pulmonary embolism without acute cor pulmonale (principal); I82.409 Acute embolism and thrombosis of unspecified deep veins of unspecified lower extremity; Z87.891 Personal history of nicotine dependence; I10 Essential (primary) hypertension
CPT/HCPCS: 36415; 36600; 71275; 80051; 80053; 82330; 82805; 83880; 84443; 84484; 85025; 85610; 85651; 85730; 87635; 93005; 93306; 93970; 96361; 96365; 96366; 99285; G0378; J1644; J7030; Q9967

== ENCOUNTER 2020-12-18 15:16 | Outpatient (CLI) | payer BC, SELFPAY | END 2020-12-18 15:17 | disposition home or self-care (01) | PROVIDERS: PCP Family Medicine; Visit Provider Nurse Practitioner | DX: R06.02 Shortness of breath (principal) | CPT/HCPCS: 85378 ==

== ENCOUNTER 2020-12-31 12:03 | Outpatient (CLI) | payer BC, SELFPAY ==
--- NOTE | 2020-12-31 17:42 | ONC CON_ITS ---
Dr. Dean New Patient Note Patient: Camacho Zuleta Unit #: [id number]: 1970 Dicatated By: Phillip Dean M.D.Date of Visit: Dec 31, 2020 Onc MED New Patient/Consult Referring Physician: Dr. Masood Peralta M.D. Chief Complaint: Deep vein thrombosis/pulmonary emboli. History of Present Illness: This is a 50-year-old man with a recent episode of left lower extremity deep vein thrombosis and extensive pulmonary emboli. He has been in good general health. On 10/18/2020 he underwent a stem cell injection to the left knee for persistent knee pain. Within 9 to 10 days following that injection he had developed pain behind his left knee and now was followed by pain and swelling in the left calf. He also then developed fever with redness and swelling in his knee, and he had to have fluid drained from it. The fluid culture reportedly was negative. The calf pain persisted. On 12/18/2020 he presented to the emergency room with shortness of breath which had gradually worsened over period of 7 days. He also reported generalized weakness and fatigue. His CT pulmonary angiogram showed extensive bilateral pulmonary emboli involving the distal right main pulmonary artery and extending into the segmental and subsegmental pulmonary arteries bilaterally. There was no evidence for saddle embolus. There were no pulmonary infarcts noted and there is no evidence of right heart strain. He was admitted to the hospital and subsequent evaluation with lower extremity venous Doppler showed acute occlusive deep vein thrombosis involving the left popliteal and left peroneal veins. The right lower extremity appeared normal. His echocardiogram showed normal left ventricular ejection fraction estimated at 65%. The right ventricle had normal size and function. He was noted to have a moderately thickened mitral valve with moderate mitral annular calcifications. There was no mitral valve stenosis or mitral valve regurgitation. Pulmonary artery systolic pressure was noted to be within normal limits. He initially began on anticoagulation with IV heparin. He was discharged home on apixaban 10 mg twice daily. Since his hospitalization his breathing has improved, though he continues to have some shortness of breath and some tightness in the left side of his chest. He also still feels super tired and weak, but he is doing some light work. His ECOG score is 1. He has good appetite. He had 2 episodes of fever during this time, but he has had none recently. He has not been having night sweating. He has no GI or complaints. 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 The left calf pain also improved, though he did have some pain there again today. Past Medical History: His medical history includes allergic rhinitis and hypertension. Past Surgical History: His only surgical procedure was a stem cell injection to the left knee on 10/18/2020. Medications: Apixaban (5 mg) Tablet Oral b.i.d., Cetirizine HCl (10 mg) Tablet Oral daily, Lisinopril (10 mg) Tablet Oral daily Allergies: No Known Allergies. Social History: Mr. Zuleta is . 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 He has a history of smoking less than a pack of cigarettes daily and only for 2 to 3 years. He quit smoking in 2005. He has had just occasional alcohol use. Family History: Both parents are still living, father at age 78 and mother at age 75. He has diabetes and coronary artery disease, and he has had stroke. He also has had blood clots. His mother has scoliosis. A 53-year-old brother and a 57-year-old sister have had blood clots. She also has lupus. Review Of Symptoms: Constitutional - He still feels super tired and weak. He is able to work. He has good appetite. He had 2 episodes of fever during this time, but none recently. He has not been having night sweating. ECOG score is 1, Eyes - No change in vision, ENMT - No hearing loss or tinnitus. He has some allergy related sinus symptoms. No mouth sores. No sore throat or difficulty swallowing, Hematologic/Lymphatic - No abnormal bruising or bleeding, Respiratory - He still has some shortness of breath, but his breathing is getting better. He has cough and he sometimes has tightness on the left side of his chest with breathing. He has not had hemoptysis, Cardiovascular - No angina pain. No palpitations, Gastrointestinal - No nausea or vomiting. No heartburn or acid reflux. No diarrhea or constipation. No blood in the stool or black stools, Genitourinary (M) - No dysuria or hematuria. No urinary frequency. No urgency or incontinence, Musculoskeletal - He has pain in his left knee. He also has some arthritis pain in his fingers, Integumentary - No skin rash or other skin changes, Neurologic - He occasionally has headache in the back of his head and he occasionally has dizziness. He has numbness/tingling in his hands which comes and goes, Psychiatric - No anxiety or depression. No insomnia. Vital Signs: Performed on Dec 31, 2020 13:16: 3, 0, 36.76 (HIGH), 2.32 sq.m, 70 in, 98 %, 88 /min, 18 /min, 129/87 mm(hg), 98.5 F, and 256.2 lbs (HIGH). Physical Examination: Constitutional - He appears to be in good general health, Eyes - Sclerae nonicteric. Conjunctivae clear, ENMT - No lesions noted in the oral cavity, Neck - No mass or thyromegaly, Hematologic/Lymphatic - No cervical, clavicular, or axillary adenopathy, Respiratory - Lungs are clear with good air movement bilaterally, Cardiovascular - Heart rhythm is regular. There is no murmur, gallop, or rub noted, Abdomen - Soft and non-tender. Liver and spleen are not enlarged. There is no abdominal mass or ascites noted and there is no inguinal adenopathy, Back/Spine - No spine or CVA tenderness noted, Extremities - There is no pedal edema, the left calf does appear larger and the circumference measures 47.5 cm on the left compared to 46.0 cm on the right. He has palpable pedal pulses bilaterally, Integumentary - No rashes. No suspicious skin lesions noted, Neurologic - No focal neurologic deficits noted. Problem List: 1. Left lower extremity deep vein thrombosis and extensive pulmonary embolism. 2. He underwent stem cell injection to the left knee on 10/18/2020. 3. Hypertension. 4. Allergic rhinitis. Problems Addressed with this Encounter and Plan: Patient with recent episode of left lower extremity deep vein thrombosis and extensive pulmonary embolism. He had undergone a stem cell injection to the left knee on 10/18/2020 and symptoms had started within 10 days of that procedure. While the procedure itself would not have been a precipitating cause for the thromboembolism, he was relatively immobile for the next 5 days, and he first had DVT symptoms within 10 days of that procedure. As such, this may have been a provoked episode of thromboembolism. However, he also has a significant family history of thrombosis, which raises concern over the possibility of an hereditary thrombophilia. In his particular situation, this may have been a provoked episode of thromboembolism, and in the absence of an underlying thrombophilia he may be eligible to stop anticoagulation after 6 months of treatment. With his family history, there is a possibility that he has an hereditary thrombophilia, though testing may not be accurate while he is on anticoagulation, particularly in the setting of recent acute thromboembolism. We also discussed the fact that identifying an hereditary thrombophilia may influence the duration of his anticoagulation, but it will otherwise not influence his treatment. As such, I am going to defer the thrombophilia evaluation to a later time, but I am going to schedule a repeat venous Doppler to be done this week and I also will schedule a 4-week interval follow-up CT angiogram. He will have further evaluation as indicated. Signed By: Phillip Dean M.D. <<Signature on File>>
== END 2020-12-31 12:04 | disposition home or self-care (01) ==
LOC: ONCMED 12:07
PROVIDERS: PCP Family Medicine; Visit Provider Internal Medicine Medical Oncology
DX: I82.432 Acute embolism and thrombosis of left popliteal vein (principal); I26.99 Other pulmonary embolism without acute cor pulmonale; Z98.890 Other specified postprocedural states; Z83.2 Family history of diseases of the blood and blood-forming organs and certain disorders involving the immune mechanism; Z79.01 Long term (current) use of anticoagulants
CPT/HCPCS: 99205

== ENCOUNTER 2021-01-02 07:51 | Outpatient (CLI) | payer BC, SELFPAY ==
--- NOTE | 2021-01-02 08:01 | USCV_ITS ---
Camacho Zuleta Age: 50 Gender: M : 1970 Exam Date: 01/02/2021 08:28 Ordering Phys: Phillip Dean MD Technologist: FER Exam Location: [facility] – [place] Indication: FOLLOW UP DVT LT POP DVT HISTORY: Lower extremity swelling. PROCEDURES: Comparison:. 12/19/20. enous duplex imaging was performed in only the left lower extremity. The following venous structures were evaluated: common femoral vein, profunda vein, proximal portion of the greater saphenous vein, superficial femoral vein, and the popliteal vein. FINDINGS: Improving but persistent DVT left popliteal and peroneal veins. No additional DVT. CONCLUSIONS Persistent but improving left DVT. Dr. Reema Bliss DO (Electronically Signed) Final Date: 02 January 2021 11:09 S
== END 2021-01-02 07:52 | disposition home or self-care (01) ==
LOC: RAD 07:56
PROVIDERS: PCP Family Medicine; Visit Provider Internal Medicine Medical Oncology
DX: I82.432 Acute embolism and thrombosis of left popliteal vein (principal)
CPT/HCPCS: 93971

== ENCOUNTER 2021-01-24 10:40 | Outpatient (CLI) | payer BC, SELFPAY ==
--- NOTE | 2021-01-24 10:50 | CT_ITS ---
WS: [id number] CT CHEST ANGIOGRAPHY WITH REFORMATS HISTORY: FOLLOWUP PULMONARY EMBOLI TECHNIQUE: Contiguous axial images are obtained through the chest during arterial injection of intrav enous contrast. Images are reconstructed to evaluate the pulmonary arteries. MIP imaging also reviewe d. All CT scans at [facility] use at least one of these dose optimization techniques: aut omated exposure control; mA and/or kV adjustment per patient size (includes targeted exams where dose is matched to clinical indication); or iterative reconstruction. CONTRAST: Omnipaque 350; 95 mL IV. DLP: 750.28 mGycm COMPARISON: 12/18/2020 Adequate opacification of the pulmonary artery. Previously described extensive pulmonary embolic ida en in the main pulmonary arteries is no longer present. No residual thrombus. Normal size main pulmon khadra artery. Normal aorta. Heart is normal size with no RIGHT heart strain. No pericardial or pleural effusions. No pneumonia or pulmonary nodules. No mediastinal or hilar adenopathy. No hiatal hernia. Visualized upper abdomen is negative. Mild spondylitic changes in the thoracic spin e. CT/CT angio chest PE protcl [id number] IMPRESSION: 1. No residual pulmonary embolism. 2. No pneumonia or RIGHT heart strain. No adenopathy.
[2021-01-24] MEDS: iohexol 350 mg/mL 100 mL Btl IV (11:14)
== END 2021-01-24 10:41 | disposition home or self-care (01) ==
PROVIDERS: PCP Family Medicine; Visit Provider Internal Medicine Medical Oncology
DX: I26.99 Other pulmonary embolism without acute cor pulmonale (principal)
CPT/HCPCS: 71275; Q9967

== ENCOUNTER 2021-01-31 09:29 | Outpatient (CLI) | payer BC, SELFPAY ==
[2021-01-31 10:27] LABS: Basophils # 0.1 10^3/uL (0.0-0.1); Basophils % 0.8 %; Eosinophils # 0.3 10^3/uL (0.0-0.8); Eosinophils % 3.6 %; Hematocrit 45.7 % (42.0-52.0); Hemoglobin 15.3 g/dL (11.7-16.6); Lymphocytes # 1.7 10^3/uL (0.8-4.8); Lymphocytes % 19.8 %; Mean Corpuscular HGB Conc 33.5 g/dL (30.0-36.0); Mean Corpuscular Hemoglobin 29.5 pg (28.0-34.0); Mean Corpuscular Volume 88.2 fL (80-94); Mean Platelet Volume 11.1 fL (7.4-10.4); Monocytes % 11.5 %; Neutrophils # 5.42 10^3/uL (1.8-7.7); Neutrophils % 63.8 %; Nucleated Red Blood Cells % 0 %; Platelet Count 271 10^3/cmm (130-400); Red Blood Count 5.18 10^6/uL (4.1-5.3); Red Cell Distribution Width 12.5 % (12.1-15.1); White Blood Count 8.5 10^3/uL (4.0-10.0)
[2021-01-31 10:44] LABS: D Dimer 0.29 ug/mIFEU (0-0.59)
[2021-02-05 15:22] LABS: PROTHROMBIN (FACTOR II) 20210G NEGATIVE
[2021-02-05 19:12] LABS: Factor 5 Leiden Mutation POSITIVE
[2021-02-06 02:13] LABS: Beta 2 Glycoprotein IGA <9 SAU (<=20); Beta 2 Glycoprotein IGG <9 SGU (<=20); Beta 2 Glycoprotein IGM <9 SMU (<=20)
[2021-02-07 18:12] LABS: CARDIOLIPIN AB (IGA) <11 APL; CARDIOLIPIN AB (IGG) <14 GPL; CARDIOLIPIN AB (IGM) <12 MPL
== END 2021-01-31 09:30 | disposition home or self-care (01) ==
LOC: ONCMED 09:30
PROVIDERS: PCP Family Medicine; Visit Provider Internal Medicine Medical Oncology
DX: D68.51 Activated protein C resistance (principal); I26.99 Other pulmonary embolism without acute cor pulmonale; I82.432 Acute embolism and thrombosis of left popliteal vein
CPT/HCPCS: 36415; 81241; 85025; 85210; 85378; 86146; 86147

== ENCOUNTER 2021-02-18 08:25 | Outpatient (CLI) | payer BC, SELFPAY ==
--- NOTE | 2021-02-18 10:26 | ONC FU_ITS ---
Dr. Dean Patient Follow-Up Note Patient: Camacho Zuleta Unit #: [id number]: 1970 Dicatated By: Phillip Dean M.D.Date of Visit:February 18, 2021 Onc Med Follow-up/Prog Note Chief Complaint: Deep vein thrombosis/pulmonary emboli. History of Present Illness: This is a 50-year-old man with a recent episode of left lower extremity deep vein thrombosis and extensive pulmonary emboli. On 10/18/2020 he underwent a stem cell injection to the left knee for persistent knee pain. Within 9 to 10 days following that injection he had developed pain behind his left knee and now was followed by pain and swelling in the left calf. He also then developed fever with redness and swelling in his knee, and he had to have fluid drained from it. The fluid culture reportedly was negative. The calf pain persisted. On 12/18/2020 he presented to the emergency room with shortness of breath which had gradually worsened over period of 7 days. He also reported generalized weakness and fatigue. His CT pulmonary angiogram showed extensive bilateral pulmonary emboli involving the distal right main pulmonary artery and extending into the segmental and subsegmental pulmonary arteries bilaterally. There was no evidence for saddle embolus. There were no pulmonary infarcts noted and there is no evidence of right heart strain. He was admitted to the hospital and subsequent evaluation with lower extremity venous Doppler showed acute occlusive deep vein thrombosis involving the left popliteal and left peroneal veins. The right lower extremity appeared normal. His echocardiogram showed normal left ventricular ejection fraction estimated at 65%. The right ventricle had normal size and function. He was noted to have a moderately thickened mitral valve with moderate mitral annular calcifications. There was no mitral valve stenosis or mitral valve regurgitation. Pulmonary artery systolic pressure was noted to be within normal limits. He initially began on anticoagulation with IV heparin. He was discharged home on apixaban 10 mg twice daily. I had seen him initially on 12/31/2020. At that point his apixaban dosage had been reduced to 5 mg twice daily. He was showing some improvement clinically, though he still complained that he was super tired and weak and he also complained that he was short of breath with activity. It appeared that this was most likely a provoked episode of thromboembolism, but he also had a significant family history of blood clotting, and I felt that a thrombophilia evaluation was indicated. His other medical illnesses have been limited to hypertension and allergic rhinitis. He has had no other surgeries. He had smoked for couple of years in the past, and he quit smoking in 2005. His family history is significant for father having had blood clots and stroke and for brother and a sister also having had blood clots. INTERIM HISTORY: His repeat CT pulmonary angiogram on 01/24/2021 showed no evidence of residual pulmonary embolism. There was no evidence for pneumonia, right heart strain, or other acute pathology. His laboratory studies from 01/31/2021 included CBC showing hemoglobin 15.3 g, white blood cell count 8500, and platelet count 271,000. The D-dimer was low at 0.29 ???g/mIFEU. His partial thrombophilia evaluation included a cardiolipin antibody panel, which was unrevealing. The prothrombin gene mutation was not detected, but he was found to be heterozygous for the factor V Leiden mutation. He is seen now for a follow-up visit. His main complaint is that he is still getting short of breath with activity. He has pretty good energy, but he says he has worn out by the end of the day. His ECOG score is 1. He has good appetite. He has no fever or night sweats. He has some allergy related sinus symptoms and cough. He does not have resting dyspnea. A few weeks ago he was having some aching pain in his upper left chest, but that is gone now. He has no GI or complaints. He has no significant joint or bone pain. He occasionally gets lightheaded bending over. He does not complain of headache, and he has no focal neurologic symptoms. He has not had any abnormal bruising or bleeding. Medications: Apixaban (5 mg) Tablet Oral b.i.d., Cetirizine HCl (10 mg) Tablet Oral daily, Lisinopril (10 mg) Tablet Oral daily Allergies: No Known Allergies. Vital Signs: Performed on February 18, 2021 08:37 Height - 70.00 in Weight - 265.4 lbs (HIGH) BSA - 2.35 sq.m BMI - 38.08 (HIGH) Temperature - 97.3 F (LOW) Pulse - 67 /min Respiration - 18 /min BP - 130/86 mm(hg) O2 Sat - 98 % Pain - 0 Physical Examination: Constitutional - He looks good generally, Eyes - Sclerae nonicteric. Conjunctivae clear, ENMT - No lesions noted in the oral cavity, Hematologic/Lymphatic - No cervical, clavicular, or axillary adenopathy, Respiratory - Lungs are clear with good air movement bilaterally, Cardiovascular - Heart rhythm is regular. There is no murmur, gallop, or rub noted, Abdomen - Soft. Liver and spleen are not enlarged. There is no abdominal mass or ascites noted and there is no inguinal adenopathy, Extremities - No edema, Neurologic - No focal neurologic deficits noted. Lab/Imaging: Test performed on Jan 31, 2021 10:05 WBC 8.5 10 3/uL RBC 5.18 10 6/uL HGB 15.3 g/dL HCT 45.7 % MCV 88.2 fL MCH 29.5 pg MCHC 33.5 g/dL RDW 12.5 % Platelet Count 271 10 3/cmm MPV 11.1 fL Neutrophils 5.42 10 3/uL Lymphocytes 1.7 10 3/uL Monocytes 1.0 10 3/uL Eosinophils 0.3 10 3/uL Basophils 0.1 10 3/uL Neutrophil % 63.8 % Lymphocyte % 19.8 % Monocyte % 11.5 % Eosinophil % 3.6 % Basophils % 0.8 % NRBC % 0 % Problem List: 1. Left lower extremity deep vein thrombosis and extensive pulmonary embolism. 2. He has a significant family history for thromboembolism, and he was determined to be heterozygous for the Factor V Leiden mutation. 3. Hypertension. 4. Allergic rhinitis. Problems Addressed with this Encounter and Plan: Patient with an episode of left lower extremity deep vein thrombosis and extensive pulmonary embolism. He had undergone a stem cell injection to the left knee on 10/18/2020 and symptoms had started within 10 days of that procedure. He has a significant family history of thrombosis, and he was determined to be heterozygous for the Factor V Leiden mutation. At this point it is uncertain to what extent of the procedure to the left knee or the factor V Leiden mutation may have contributed to his thromboembolism, but with a significant family history for thromboembolism, I am more inclined now to recommend long-term anticoagulation. Despite the improvement noted on his repeat CT pulmonary angiogram, he is still significantly symptomatic, and I will discuss his further evaluation with Dr. Corral. Signed By: Phillip Dean M.D. <<Signature on File>>
== END 2021-02-18 08:26 | disposition home or self-care (01) ==
LOC: ONCMED 08:26
PROVIDERS: PCP Family Medicine; Visit Provider Internal Medicine Medical Oncology
DX: D68.51 Activated protein C resistance (principal); I26.99 Other pulmonary embolism without acute cor pulmonale; I82.432 Acute embolism and thrombosis of left popliteal vein; I10 Essential (primary) hypertension; J30.9 Allergic rhinitis, unspecified; Z79.01 Long term (current) use of anticoagulants; Z79.899 Other long term (current) drug therapy
CPT/HCPCS: 99214

== ENCOUNTER 2021-03-28 14:58 | Outpatient (CLI) | payer BC, SELFPAY ==
--- NOTE | 2021-03-28 15:00 | USCV_ITS ---
Camacho Zuleta Age: 50 Gender: M : 1970 Exam Date: 03/28/2021 15:39 Ordering Phys: Alex Corral MD Technologist: Evie Sheridan Exam Location: [facility] [place] Indication: Other pulmonary embolism without acute cor pulmonale BP: / HR: Rhythm: Sinus Technical Quality: Fair MEASUREMENTS (Male / Female) Normal Values 2D ECHO LV Diastolic Diameter PLAX 5.3 cm 4.2 - 5.9 / 3.9 - 5.3 cm LV Systolic Diameter PLAX 3.2 cm LV Chamber Size 3.6 cm IVS Diastolic Thickness 1.4 cm 0.6 - 1.0 / 0.6 - 0.9 cm IVS Systolic Thickness 1.8 cm LVPW Diastolic Thickness 1.2 cm 0.6 - 1.0 / 0.6 - 0.9 cm LVPW Systolic Thickness 1.4 cm RV Chamber Size 2.3 cm LVOT Diameter 2.0 cm LV Ejection Fraction 2D Teich 69.6 % LV Ejection Fraction MOD 2C 65.0 % LV Ejection Fraction 2C AL 67.3 % LA Diameter 3.2 cm LA Width 2.8 cm LA Height 4.6 cm RA Width 2.8 cm RA Height 5.6 cm Aorta at Sinotubular Diameter 2.7 cm M-MODE LV Diastolic Diameter MM 5.2 cm 4.2 - 5.9 / 3.9 - 5.3 cm LV Systolic Diameter MM 3.3 cm LV Ejection Fraction MM Teich 66.7 % IVS Diastolic Thickness MM 1.6 cm 0.6 - 1.0 / 0.6 - 0.9 cm IVS Systolic Thickness MM 2.0 cm LVPW Diastolic Thickness MM 1.3 cm 0.6 - 1.0 / 0.6 - 0.9 cm LVPW Systolic Thickness MM 1.6 cm RV Diastolic Diameter MM 0.9 cm Aortic Annulus Diameter 3.8 cm LA Ao Ratio MM 1.0 MV E Point Septal Separation 0.9 cm DOPPLER AV Peak Velocity 109.0 cm/s LVOT Peak Velocity 89.0 cm/s AV Area Cont Eq vti 2.7 cm squared AV Area Cont Eq pk 2.6 cm squared MV Area PHT 3.7 cm squared Mitral E to A Ratio 1.5 MV E' Velocity 40.5 cm/s Mitral E to MV E' Ratio 5.0 Mitral E to LV E' Lateral Ratio 4.0 Mitral E to LV E' Septal Ratio 6.4 TR Peak Velocity 244.7 cm/s TR Peak Gradient 24.0 mmHg TR Mean Velocity 205.5 cm/s TR Mean Gradient 17.1 mmHg TR Velocity Time Integral 72.8 cm TV Peak E Velocity 54.0 cm/s Right Atrial Pressure 3.0 mmHg Pulmonary Artery Systolic Pressu 27.0 mmHg PV Peak Velocity 67.0 cm/s RV Acceleration Time 0.1 s RV Ejection Time 0.3 s RV AcT/ET 0.2 FINDINGS Left Ventricle Normal left ventricular size, systolic function and wall thickness, with no regional wall motion abnormalities. Left ventricular ejection fraction is estimated at 70 %. Normal diastolic function. Right Ventricle Normal right ventricular size and systolic function. Right ventricular systolic pressure 27 mmHg. Right Atrium Normal right atrial size. Right atrial pressure estimated at 3 mm Hg. Left Atrium Normal left atrial size. Mitral Valve Mildly thickened mitral valve. No mitral valve stenosis. No mitral valve regurgitation. Aortic Valve Structurally normal trileaflet aortic valve. No aortic valve stenosis. No aortic valve regurgitation. Tricuspid Valve Structurally normal tricuspid valve. Trace tricuspid valve regurgitation. Pulmonic Valve Pulmonic valve not well visualized. No pulmonary valve stenosis. No pulmonary valve regurgitation. Pericardium No pericardial effusion. Normal sized inferior vena cava with normal respiratory variations. Aorta Normal size aortic root and proximal ascending aorta. CONCLUSIONS 1. Normal left ventricular size, systolic function and wall thickness, with no regional wall motion abnormalities. Left ventricular ejection fraction is estimated at 70 %. Normal diastolic function. 2. No significant valvular abnormality. 3. Pulmonary artery pressure estimated at 27 mm Hg. 4. Right atrial pressure estimated at 3 mm Hg. 5. No significant change when compared to previous echocardiogram dated 12/19/20. Maribel Oakes MD (Electronically Signed) Final Date: 03 April 2021 18:56 S
--- NOTE | 2021-03-28 15:45 | USCV_ITS ---
ZuletaCamacho ohara Age: 50 Gender: M : 1970 Exam Date: 03/28/2021 15:16 Ordering Phys: Alex Corral MD Technologist: Evie Sheridan Exam Location: [facility] – [place] Indication: DVT HISTORY: Patient has history of DVT. PROCEDURES: Comparison: 01-02-21. Venous duplex imaging was performed in bilateral lower extremities. The following venous structures were evaluated: common femoral vein, profunda vein, proximal portion of the greater saphenous vein, superficial femoral vein, and the popliteal vein. In addition, the posterior tibial and peroneal trunk were evaluated. Serial compression, augmentation maneuvers, and spectral Doppler flow evaluation were performed. FINDINGS: Normal 2-D Doppler and augmentation and compressibility throughout the lower extremity venous structures. Additional imaging through the proximal calf veins also reveals no thrombus. Limited evaluation of the greater saphenous vein is patent with no thrombus.. Duplicated left femoral and popliteal veins. CONCLUSIONS No DVT bilateral lower extremities. Dr. Reema Bliss DO (Electronically Signed) Final Date: 28 March 2021 16:33 S
== END 2021-03-28 14:59 | disposition home or self-care (01) ==
LOC: RAD 15:00
PROVIDERS: PCP Family Medicine; Visit Provider Internal Medicine Critical Care Medicine
DX: I82.409 Acute embolism and thrombosis of unspecified deep veins of unspecified lower extremity (principal)
CPT/HCPCS: 93306; 93970

== ENCOUNTER 2021-07-22 08:45 | Outpatient (CLI) | payer BC, SELFPAY ==
--- NOTE | 2021-07-30 22:32 | ONC FU_ITS ---
Will Vogt Patient Note Patient: Camacho Zuleta Unit #: [id number]: 1970 Dictated By: Monique MonacoDate of Visit: Jul 22, 2021 Onc MED Follow-Up/Prog Note Chief Complaint: Deep vein thrombosis/pulmonary emboli. History of Present Illness: Mr Zuleta is a 50-year-old man with a recent episode of left lower extremity deep vein thrombosis and extensive pulmonary emboli. On 10/18/2020 he underwent a stem cell injection to the left knee for persistent knee pain. Within 9 to 10 days following that injection he had developed pain behind his left knee and now was followed by pain and swelling in the left calf. He also then developed fever with redness and swelling in his knee, and he had to have fluid drained from it. The fluid culture reportedly was negative. The calf pain persisted. On 12/18/2020 he presented to the emergency room with shortness of breath which had gradually worsened over period of 7 days. He also reported generalized weakness and fatigue. His CT pulmonary angiogram showed extensive bilateral pulmonary emboli involving the distal right main pulmonary artery and extending into the segmental and subsegmental pulmonary arteries bilaterally. There was no evidence for saddle embolus. There were no pulmonary infarcts noted and there is no evidence of right heart strain. He was admitted to the hospital and subsequent evaluation with lower extremity venous Doppler showed acute occlusive deep vein thrombosis involving the left popliteal and left peroneal veins. The right lower extremity appeared normal. His echocardiogram showed normal left ventricular ejection fraction estimated at 65%. The right ventricle had normal size and function. He was noted to have a moderately thickened mitral valve with moderate mitral annular calcifications. There was no mitral valve stenosis or mitral valve regurgitation. Pulmonary artery systolic pressure was noted to be within normal limits. He initially began on anticoagulation with IV heparin. He was discharged home on apixaban [address] Dean had seen him initially on 12/31/2020. At that point his apixaban dosage had been reduced to 5 mg twice daily. He was showing some improvement clinically, though he still complained that he was super tired and weak and he also complained that he was short of breath with activity. It appeared that this was most likely a provoked episode of thromboembolism, but he also had a significant family history of blood clotting, and Dr Dean felt that a thrombophilia evaluation was indicated. His other medical illnesses have been limited to hypertension and allergic rhinitis. He has had no other surgeries. He had smoked for couple of years in the past, and he quit smoking in 2005. His family history is significant for father having had blood clots and stroke and for brother and a sister also having had blood clots. INTERIM HISTORY: His repeat CT pulmonary angiogram on 01/24/2021 showed no evidence of residual pulmonary embolism. There was no evidence for pneumonia, right heart strain, or other acute pathology. His laboratory studies from 01/31/2021 included CBC showing hemoglobin 15.3 g, white blood cell count 8500, and platelet count 271,000. The D-dimer was low at 0.29 ???g/mIFEU. His partial thrombophilia evaluation included a cardiolipin antibody panel, which was unrevealing. The prothrombin gene mutation was not detected, but he was found to be heterozygous for the factor V Leiden mutation. Mr. Zuleta has continued on long-term anticoagulation with apixaban 5 mg twice daily. Follow-up bilateral lower extremity venous Doppler on March 28, 2021 reported no bilateral lower extremity DVTs however given his strong family history and his factor V Leiden it is been recommended that he remain on long-term anticoagulation. He did have follow-up echocardiogram on 03/28/2021 which reported normal left ventricular size systolic function and wall motion thickness. There were no regional wall motion abnormalities. His LVEF was estimated at 70%. There was no significant change compared to an echocardiogram from 12/19/2020. Mr. Zuleta is here today for follow-up. He states overall he feels pretty good except he is having persistent left knee pain. It has been increasing over the last month or so and denies began having swelling. He denies that it has been warm or red. He denies any lower extremity edema other than in the knee. He states his shortness of breath is about the same. It is certainly no worse. He is concerned that is actually no better either. He did have 2 episodes about a week apart of hemoptysis. He has not had any in the last couple of days. He denies any pain with inspiration but states he is just winded walking minimal distance. He has no other productive cough. He states that he does note that he is wheezing from time to time but generally if he sits down to rest this goes away. He is having significant pain in the left knee. He states in that it keeps him awake at night and he can hardly get around on it . He has not tried any recent pain medication other than [id number] pain meds. He denies any allergies to any drugs. He denies any nausea or vomiting. He has had no fever or chills. He denies any trouble swallowing. He denies any lower extremity edema. His ECOG is 2 due to the significant left knee pain. He is still try to work full-time and finds it his knee pain limits his ability to do things. Past Medical History: Allergic rhinitis Hypertension Past Surgical History: Stem cell injection, left knee in 2020 Allergies: No Known Allergies. Medications: Apixaban (5 mg) Tablet Oral b.i.d. Cetirizine HCl (10 mg) Tablet Oral daily Lisinopril (10 mg) Tablet Oral daily Family History: Mr. Zuleta's mother is alive. Mr. Zuleta's father is alive. Mr. Zuleta has 1 brother who is alive. He has 1 sister who is alive. Both parents are still living, father at age 78 and mother at age 75. He has diabetes and coronary artery disease, and he has had stroke. He also has had blood clots. His mother has scoliosis. A 53-year-old brother and a 57-year-old sister have had blood clots. She also has lupus. Social History: Mr. Zuleta is . Mr. Zuleta has never smoked. He is an active drinker. Mr. Zuleta reports the following support systems: lives with spouse, significant other, family, or friends. 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 He has a history of smoking less than a pack of cigarettes daily and only for 2 to 3 years. He quit smoking in 2005. He has had just occasional alcohol use. Review Of Symptoms: <See Above> Vital Signs: Performed on Jul 22, 2021 09:32 Height - 70.00 in Weight - 276 lbs (HIGH) BSA - 2.39 sq.m BMI - 39.60 (HIGH) Temperature - 98.5 F Pulse - 73 /min Respiration - 18 /min BP - 137/88 mm(hg) O2 Sat - 97 % Pain - 5 Fatigue - 6,2 - Ambulatory/capable of all self-care, unable to perform any work activities. Up and about more than 50% of waking hours. (ECOG) Physical Examination: Constitutional Alert, oriented, no acute distress. Skin pink, warm and dry. Head Normocephalic; atraumatic. Eyes Conjunctivae and sclerae are clear and without icterus. Pupils are reactive and equal. Neck Supple without masses or thyromegaly. No jugular venous distension. Hematologic/Lymphatic No petechiae or purpura. No tender or palpable lymph nodes in the cervical or supraclavicular areas. Respiratory Lungs are clear to auscultation without rhonchi or wheezing. Cardiovascular Regular rate and rhythm of heart without murmurs,clicks, gallops or rubs. Abdomen Non-tender, non-distended, no masses or ascites. Good bowel sounds noted in all quads. No guarding or rebound tenderness. No pulsatile masses. Back/Spine Non-tender to palpation. Extremities No visible deformities, no cyanosis, clubbing or edema. Musculoskeletal No tenderness or swelling, normal range of motion without obvious weakness. Integumentary No rashes or lesions. Neurologic No sensory or motor deficits, normal cerebellar function, normal gait. Psychiatric Alert and oriented times three. Coherent speech. Verbalizes understanding of our discussions today. Laboratory:Test performed on Jan 31, 2021 10:05 WBC 8.5 10 3/uL RBC 5.18 10 6/uL HGB 15.3 g/dL HCT 45.7 % MCV 88.2 fL MCH 29.5 pg MCHC 33.5 g/dL RDW 12.5 % Platelet Count 271 10 3/cmm MPV 11.1 fL Neutrophils 5.42 10 3/uL Lymphocytes 1.7 10 3/uL Monocytes 1.0 10 3/uL Eosinophils 0.3 10 3/uL Basophils 0.1 10 3/uL Neutrophil % 63.8 % Lymphocyte % 19.8 % Monocyte % 11.5 % Eosinophil % 3.6 % Basophils % 0.8 % NRBC % 0 % Impression: 1. Left lower extremity deep vein thrombosis and extensive pulmonary embolism. 2. He has a significant family history for thromboembolism, and he was determined to be heterozygous for the Factor V Leiden mutation. 3. Hypertension. 4. Allergic rhinitis. Plan/Problems Addressed at this Visit: 1. 10/27/2020 Left lower extremity deep vein thrombosis and extensive pulmonary embolism. He had undergone a stem cell injection to the left knee on 10/18/2020 and symptoms had started within 10 days of that procedure. He has a significant family history of thrombosis, and he was determined to be heterozygous for the Factor V Leiden mutation. At this point it is uncertain to what extent of the procedure to the left knee or the factor V Leiden mutation may have contributed to his thromboembolism, but with a significant family history for thromboembolism, Dr Dean has recommended long-term anticoagulation. A. Proceed with same dosing of apixaban 5 mg twice daily. This is planned to be a long-term coagulation treatment. B. We will plan for follow-up in 2 months with CBC CMP and repeat D-dimer. C. Will call Mr. Zuleta with results of the CTA once that is obtained. D. Mr. Zuleta was encouraged to contact us in interim should questions or problems arise. 2. Despite the improvement noted on his previous CT pulmonary angiogram, he is still significantly symptomatic. A. Request followup CTA 3. Persistent left knee pain after stem cell injection on 10/18/2020. A. MRI with contrast of left knee. B. Referral to orthopedics after MRI obtained C. Hydrocodone 5/325 mg 1 or 2 every 4 hours # 60 NR for knee pain. Signed By: Monique Monaco-, [facility] Phillip Dean MD <<Signature on File>>
== END 2021-07-22 08:46 | disposition home or self-care (01) ==
LOC: ONCMED 08:46
PROVIDERS: PCP Family Medicine; Visit Provider Nurse Practitioner
DX: I82.492 Acute embolism and thrombosis of other specified deep vein of left lower extremity (principal); I26.99 Other pulmonary embolism without acute cor pulmonale; D68.51 Activated protein C resistance; I10 Essential (primary) hypertension; J30.9 Allergic rhinitis, unspecified; Z79.01 Long term (current) use of anticoagulants; Z79.899 Other long term (current) drug therapy
CPT/HCPCS: 99214

== ENCOUNTER 2021-08-26 09:08 | Outpatient (CLI) | payer BC, SELFPAY ==
--- NOTE | 2021-08-26 09:17 | XRR_ITS ---
PROCEDURE INFORMATION: Exam: XR Chest Exam date and time: 08/26/2021 9:17 AM Age: 51 years old Clinical indication: Shortness of breath; Patient HX: SOB, follow up HX of pe TECHNIQUE: Imaging protocol: XR of the chest. Views: 2 views. COMPARISON: CR XR chest 2V* [id number] 12/18/2020 9:10 AM FINDINGS: Lungs: Unremarkable. No consolidation. Pleural spaces: Unremarkable. No pleural effusion. No pneumothorax. Heart/Mediastinum: Unremarkable. No cardiomegaly. Bones/joints: Unremarkable. XR/XR chest 2V* [id number] IMPRESSION: No acute findings. Radiation Dose CTDIVOL = (mGy): DLP = (mGy-cm)
== END 2021-08-26 09:09 | disposition home or self-care (01) ==
LOC: RAD 09:11
PROVIDERS: PCP Family Medicine; Visit Provider Nurse Practitioner
DX: R06.02 Shortness of breath (principal); Z86.718 Personal history of other venous thrombosis and embolism
CPT/HCPCS: 71046

== ENCOUNTER 2021-09-24 09:13 | Outpatient (CLI) | payer BC, SELFPAY ==
[2021-09-24 09:42] LABS: Basophils # 0.1 10^3/uL (0.0-0.1); Basophils % 0.8 %; Eosinophils # 0.1 10^3/uL (0.0-0.8); Eosinophils % 1.8 %; Hematocrit 46.9 % (42.0-52.0); Hemoglobin 15.8 g/dL (11.7-16.6); Lymphocytes # 1.9 10^3/uL (0.8-4.8); Lymphocytes % 24.4 %; Mean Corpuscular HGB Conc 33.7 g/dL (30.0-36.0); Mean Corpuscular Hemoglobin 29.5 pg (28.0-34.0); Mean Corpuscular Volume 87.7 fl (80-94); Monocytes # 0.8 10^3/uL (0.2-0.9); Monocytes % 9.8 %; Neutrophils # 4.96 10^3/uL (1.8-7.7); Neutrophils % 62.6 %; Nucleated Red Blood Cells % 0 %; Platelet Count 247 10^3/cmm (130-400); Red Blood Count 5.35 10^6/uL (4.1-5.3); Red Cell Distribution Width 12.1 % (12.1-15.1); White Blood Count 7.9 10^3/uL (4.0-10.0)
[2021-09-24 10:03] LABS: D Dimer <= 0.27 ug/mIFEU (0-0.59)
[2021-09-24 10:05] LABS: Alanine Aminotransferase 36 U/L (0-41); Albumin Level 4.4 g/dL (3.5-5.2); Alkaline Phosphatase 55 IU/L (40-130); Aspartate Amino Transferase 24 U/L (0-40); Blood Urea Nitrogen 15 mg/dL (6-20); Calcium 8.6 mg/dL (8.5-10.5); Carbon Dioxide 22 mmol/L (22-29); Chloride 102 mmol/L (98-107); Globulin 2.8 g/dL (1.3-4.6); Glomerular Filtration Rate 71.1 mL/min (90-130); Glucose 76 mg/dL (65-115); Osmolality Calculated 284 mOsm/kg (285-295); Sodium 137 mmol/L (136-145); Total Bilirubin 0.5 mg/dL (0.15-1.2); Total Protein 7.2 g/dL (6.6-8.7)
[2021-09-24 10:09] LABS: Anion Gap 17.5 (5-19); Potassium 4.5 mmol/L (3.5-5.1)
--- NOTE | 2021-09-24 20:04 | ONC FU_ITS ---
Dr. Dean Patient Follow-Up Note Patient: Camacho Zuleta Unit #: [id number]: 1970 Dicatated By: Phillip Dean M.D.Date of Visit:Sep 24, 2021 Onc Med Follow-up/Prog Note Chief Complaint: Deep vein thrombosis/pulmonary emboli. History of Present Illness: This is a 51 year-old man with left lower extremity deep vein thrombosis and extensive pulmonary emboli. On 10/18/2020 he underwent a stem cell injection to the left knee for persistent knee pain. Within 9 to 10 days following that injection he had developed pain behind his left knee and now was followed by pain and swelling in the left calf. He also then developed fever with redness and swelling in his knee, and he had to have fluid drained from it. The fluid culture reportedly was negative. The calf pain persisted. On 12/18/2020 he presented to the emergency room with shortness of breath which had gradually worsened over period of 7 days. He also reported generalized weakness and fatigue. His CT pulmonary angiogram showed extensive bilateral pulmonary emboli involving the distal right main pulmonary artery and extending into the segmental and subsegmental pulmonary arteries bilaterally. There was no evidence for saddle embolus. There were no pulmonary infarcts noted and there is no evidence of right heart strain. He was admitted to the hospital and subsequent evaluation with lower extremity venous Doppler showed acute occlusive deep vein thrombosis involving the left popliteal and left peroneal veins. The right lower extremity appeared normal. His echocardiogram showed normal left ventricular ejection fraction estimated at 65%. The right ventricle had normal size and function. He was noted to have a moderately thickened mitral valve with moderate mitral annular calcifications. There was no mitral valve stenosis or mitral valve regurgitation. Pulmonary artery systolic pressure was noted to be within normal limits. He initially began on anticoagulation with IV heparin. He was discharged home on apixaban 10 mg twice daily. I had seen him initially on 12/31/2020. At that point his apixaban dosage had been reduced to 5 mg twice daily. He was showing some improvement clinically, though he still complained that he was super tired and weak and he also complained that he was short of breath with activity. It appeared that this was most likely a provoked episode of thromboembolism, but he also had a significant family history of blood clotting, and I felt that a thrombophilia evaluation was indicated. His other medical illnesses have been limited to hypertension and allergic rhinitis. He has had no other surgeries. He had smoked for couple of years in the past, and he quit smoking in 2005. His family history is significant for father having had blood clots and stroke and for brother and a sister also having had blood clots. INTERIM HISTORY: His repeat CT pulmonary angiogram on 01/24/2021 showed no evidence of residual pulmonary embolism. There was no evidence for pneumonia, right heart strain, or other acute pathology. His laboratory studies from 01/31/2021 included CBC showing hemoglobin 15.3 g, white blood cell count 8500, and platelet count 271,000. The D-dimer was low at 0.29 ???g/mIFEU. His partial thrombophilia evaluation included a cardiolipin antibody panel, which was unrevealing. The prothrombin gene mutation was not detected, but he was found to be heterozygous for the factor V Leiden mutation. He continued anticoagulation with apixaban 5 mg twice daily. He is seen for a follow-up visit. He says he is feeling fine, but he still gets out of breath with strenuous activities, more so than he had previously. He is back to normal activity, though. ECOG score is 0. His appetite is good. He has no fever or night sweats. He does not have resting dyspnea, cough, or chest pain. He has no GI or complaints. He has pain in his left knee, and he is scheduled to have an MRI tomorrow. He has no other joint or bone pain. He has usual headaches. He does not complain of dizziness. He has some numbness in the index and middle fingers on both hands. His nerve conduction studies on 08/14/2020 were normal with no evidence of neuropathy or radiculopathy. Medications: Apixaban (5 mg) Tablet Oral b.i.d., Cetirizine HCl (10 mg) Tablet Oral daily, Lisinopril (10 mg) Tablet Oral daily Allergies: No Known Allergies. Vital Signs: Performed on Sep 24, 2021 13:12 Height - 70.00 in Weight - 273.6 lbs (LOW) BSA - 2.38 sq.m BMI - 39.26 (HIGH) Temperature - 98.2 F (LOW) Pulse - 97 /min Respiration - 18 /min BP - 128/78 mm(hg) O2 Sat - 98 % Pain - 0 Fatigue - 5 Physical Examination: Constitutional - He looks good generally, Eyes - Sclerae nonicteric. Conjunctivae clear, ENMT - No lesions noted in the oral cavity, Hematologic/Lymphatic - No cervical, clavicular, or axillary adenopathy, Respiratory - Lungs are clear with good air movement bilaterally, Cardiovascular - Heart rhythm is regular. There is no murmur, gallop, or rub noted, Abdomen - Soft. Liver and spleen are not enlarged. There is no abdominal mass or ascites noted and there is no inguinal adenopathy, Extremities - No edema. Both calves feels soft, Neurologic - No focal neurologic deficits noted. Lab/Imaging: Test performed on Sep 24, 2021 09:25 Sodium 137 mmol/L Potassium 4.5 mmol/L Chloride 102 mmol/L CO2 22 mmol/L Anion Gap 17.5 BUN 15 mg/dL Creatinine 1.1 mg/dL Cr Clearance (Est) 142.60 mL/min eGFR 71.1 mL/min Glucose 76 mg/dL Osmolality - Calculated 284 mOsm/kg Calcium 8.6 mg/dL Protein, Total 7.2 g/dL Albumin 4.4 g/dL Globulin 2.8 g/dL Bilirubin, Total 0.5 mg/dL ALT (SGPT) 36 U/L AST (SGOT) 24 U/L Alkaline Phosphatase 55 IU/L WBC 7.9 10 3/uL RBC 5.35 10 6/uL HGB 15.8 g/dL HCT 46.9 % MCV 87.7 fl MCH 29.5 pg MCHC 33.7 g/dL RDW 12.1 % Platelet Count 247 10 3/cmm MPV 11.0 fL Neutrophils 4.96 10 3/uL Lymphocytes 1.9 10 3/uL Monocytes 0.8 10 3/uL Eosinophils 0.1 10 3/uL Basophils 0.1 10 3/uL Neutrophil % 62.6 % Lymphocyte % 24.4 % Monocyte % 9.8 % Eosinophil % 1.8 % Basophils % 0.8 % NRBC % 0 % Problem List: 1. Left lower extremity deep vein thrombosis and extensive pulmonary embolism. 2. He has a significant family history for thromboembolism, and he was determined to be heterozygous for the Factor V Leiden mutation. 3. Hypertension. 4. Allergic rhinitis. Problems Addressed with this Encounter and Plan: Patient with an episode of left lower extremity deep vein thrombosis and extensive pulmonary embolism. He had undergone a stem cell injection to the left knee on 10/18/2020 and symptoms had started within 10 days of that procedure. He has a significant family history of thrombosis, and he was determined to be heterozygous for the Factor V Leiden mutation. At this point it is uncertain to what extent of the procedure to the left knee or the factor V Leiden mutation may have contributed to his thromboembolism, but with a significant family history for thromboembolism, I was inclined to recommend long-term anticoagulation. I reviewed those issues with him, and he prefers to continue the anticoagulation. However, as he has now completed more than 6 months of treatment, I will have him transition the apixaban to the maintenance dosage of 2.5 mg twice daily. If at some point he does wish to stop anticoagulation, he should have a repeat D-dimer at a 2-week interval. Signed By: Phillip Dean M.D. <<Signature on File>>
== END 2021-09-24 09:14 | disposition home or self-care (01) ==
LOC: ONCMED 09:15
PROVIDERS: PCP Family Medicine; Visit Provider Internal Medicine Medical Oncology
DX: I82.402 Acute embolism and thrombosis of unspecified deep veins of left lower extremity (principal); I26.99 Other pulmonary embolism without acute cor pulmonale; I10 Essential (primary) hypertension; J30.9 Allergic rhinitis, unspecified; Z79.01 Long term (current) use of anticoagulants; D68.59 Other primary thrombophilia
CPT/HCPCS: 36415; 80053; 85025; 85378; 99214

== ENCOUNTER 2021-11-08 09:32 | Emergency (ER) | payer BC, SELFPAY ==
[2021-11-08 09:47] VITALS: BP 148/95; PULSE 85; RESP 20; TEMP 36.8; O2SAT 95; BMI 38.7
[2021-11-08 09:58] VITALS: BP 130/89; PULSE 90; RESP 16; O2SAT 96
--- NOTE | 2021-11-08 10:04 | USCV_ITS ---
Camacho Zuleta Age: 51 Gender: M : 1970 Exam Date: 11/08/2021 10:44 Ordering Phys: Norman Duckworth Technologist: JOSE F Exam Location: [facility] [place] Indication: HX OF DVT, KNEE SURGERY, SWELLING HX OF DVT, KNEE SURGERY, SWELLING HISTORY: HX OF DVT, KNEE SURGERY, SWELLING PROCEDURES: Venous duplex imaging was performed in only the left lower extremity. The following venous structures were evaluated: common femoral vein, profunda vein, proximal portion of the greater saphenous vein, superficial femoral vein, and the popliteal vein. In addition, the posterior tibial and peroneal trunk were evaluated. FINDINGS: Normal 2-D Doppler and augmentation and compressibility throughout the lower extremity venous structures. Additional imaging through the proximal calf veins also reveals no thrombus. Limited evaluation of the greater saphenous vein is patent with no thrombus.. CONCLUSIONS No evidence of left lower extremity DVT. Solitario Vegas MD (Electronically Signed) Final Date: 08 November 2021 12:17 S
--- NOTE | 2021-11-08 10:05 | ED_ITS ---
Documented by User: LELO Hernandez 11/08/21 12:01 HPI - General Adult General: Chief complaint: Shortness of Breath/Dyspnea Stated complaint: Surgery Thursday, Hx Bloodclots, running fevor Time Seen by Provider: 11/08/21 09:36 History of Present Illness: Patient presents with left lower leg swelling since meniscus repair 3 days ago. Patient states he also had a fever last night. Patient has a history of PE related procedure other knee. Patient has been on Eliquis since last December. Patient denies any chest pain but did have mild shortness of breath earlier this morning. Patient denies any other problems. Associated symptoms: Reports dyspnea (He has some shortness of breath this morning.); Deny chest pain, headache(s), nausea, rash or vomiting Review of Systems Const: Reports: fever(s) (Last night); Denies: chills or body aches Eyes: Denies: eye discomfort ENMT: Denies: throat pain Card: Denies: chest pain Resp: Reports: dyspnea (He has some shortness of breath this morning.) GI: Denies: abdominal pain, nausea or vomiting Musc: Reports: extremity swelling (Left calf, recent meniscus surgery left knee done at [facility]) and other Skin/Breast: Denies: rash Neuro: Denies: headache(s) Psych: Denies: depression or suicidal ideation PFSH ED PFSH: Medical History Former smoker Hypertension Left knee pain Status post stem cell injection on October 18 by sports medicine Numbness and tingling in both hands Surgical History No pertinent past surgical history Family History Father Clotting disorder On Coumadin Social History Smoking and tobacco status: former smoker Quit status (tobacco): has quit using tobacco Year quit tobacco: 2004 Former quit date comment: Hx of 0.5 PPD x 3 Years Smoking risk assessment/counseling performed?: No Alcohol intake: current Alcohol intake frequency: few times a week Counseling given: No Counseling given: No Household members: spouse Housing: House Marital status: Current occupational status: employed Current occupation: Works for [employer] History of recent travel: No Current gender identity: Male Physical Exam Const: COMMON NORMALS: no acute distress, patient oriented x3 and alert HENMT: COMMON NORMALS: normocephalic HEAD & SCALP: normocephalic Eye: COMMON NORMALS: EOMs intact bilaterally Neck/C-Spine: COMMON NORMALS: no JVD Resp: COMMON NORMALS: normal respiratory effort and No use of accessory muscles Cardio: COMMON NORMALS: no JVD GI: INSPECTION: Yes normal to inspection Extremity: COMMON NORMALS: normal to inspection and full ROM NARRATIVE EX TREMITY EXAM: No redness are obvious swelling to the left knee or left calf area. No tenderness noted. Neuro: COMMON NORMALS: patient oriented x3 SENSORIUM/ORIENTATION: Yes alert Psych: COMMON NORMALS: mental status grossly normal Skin: COMMON NORMALS: no rashes or lesions noted GENERAL SKIN EXAM: no rashes or lesions noted Course Vital Signs: Vital signs: Vital Signs Temperature 98.2 F 11/08/21 09:47 Pulse Rate 90 11/08/21 11:30 Respiratory Rate 20 H 11/08/21 11:30 Blood Pressure 136/96 11/08/21 11:30 Pulse Oximetry 98 11/08/21 11:30 [facility] - General Adult Medical Decision Making Postprocedural left leg swelling. Ultrasound study was negative for DVT. Patient is already on Eliquis. White count slightly elevated 12.9 which would be consistent with postprocedural elevation but went ahead and place patient on Keflex. I encouraged the patient to move extremity is much as possible and he has been holding it still slightly elevated and not ambulating. Nothing swelling is probably more related to lack of movement. Patient is follow-up with the surgeon. Lab Data : 11/08/21 10:06 11/08/21 10:06 Laboratory Results WBC 12.4 10^3/uL (4.0-10.0) H 11/08/21 10:06 RBC 5.27 10^6/uL (4.1-5.3) 11/08/21 10:06 Hgb 15.3 g/dL (11.7-16.6) 11/08/21 10:06 Hct 47.7 % (42.0-52.0) 11/08/21 10:06 MCV 90.5 fl (80-94) 11/08/21 10:06 MCH 29.0 pg (28.0-34.0) 11/08/21 10:06 MCHC 32.1 g/dL (30.0-36.0) 11/08/21 10:06 RDW 12.4 % (12.1-15.1) 11/08/21 10:06 Plt Count 235 10^3/cmm (130-400) 11/08/21 10:06 MPV 11.2 fL (7.4-10.4) H 11/08/21 10:06 Neut % (Auto) 69.4 % 11/08/21 10:06 Lymph % (Auto) 15.4 % 11/08/21 10:06 [place] % (Auto) 13.4 % 11/08/21 10:06 Eos % (Auto) 0.6 % 11/08/21 10:06 Baso % (Auto) 0.5 % 11/08/21 10:06 Neut # (Auto) 8.59 10^3/uL (1.8-7.7) H 11/08/21 10:06 Lymph # (Auto) 1.9 10^3/uL (0.8-4.8) 11/08/21 10:06 [place] # (Auto) 1.7 10^3/uL (0.2-0.9) H 11/08/21 10:06 Eos # (Auto) 0.1 10^3/uL (0.0-0.8) 11/08/21 10:06 Baso # (Auto) 0.1 10^3/uL (0.0-0.1) 11/08/21 10:06 Nucleated RBC % (auto) 0 % 11/08/21 10:06 Nucleated RBCs # 0.0 /100WBC 11/08/21 10:06 Sodium 136 mmol/L (136-145) 11/08/21 10:06 Potassium 4.1 mmol/L (3.5-5.1) 11/08/21 10:06 Chloride 99 mmol/L (98-107) 11/08/21 10:06 Carbon Dioxide 22 mmol/L (22-29) 11/08/21 10:06 Anion Gap 19.1 (5-19) H 11/08/21 10:06 BUN 15 mg/dL (6-20) 11/08/21 10:06 Creatinine 0.9 mg/dL (0.7-1.2) 11/08/21 10:06 GFR Calculation 89.7 mL/min (90-130) L 11/08/21 10:06 Glucose 78 mg/dL (65-115) 11/08/21 10:06 Calculated Osmolality 282 mOsm/kg (285-295) L 11/08/21 10:06 Calcium 9.7 mg/dL (8.5-10.5) 11/08/21 10:06 Discharge Plan Discharge Patient Disposition: Home Clinical Impression: Leg swelling Condition: Stable Prescriptions: New cephalexin 500 mg capsule 500 mg PO Q8H 7 Days Qty: 21 0RF No Action lisinopril 10 mg tablet 10 mg PO QAM 0RF cetirizine 10 mg tablet 10 mg PO QAM 0RF Eliquis 5 mg tablet 5 mg PO BID 90 Days Qty: 180 1RF Rx Instructions: Will take 10 mg twice a day for 7 days and then 5 mg twice a day Discharge Orders: Discharge ED (Routine); Ordered 11/08/21 Ordered By: Norman Duckworth Referrals: Manolo Norris MD [Primary Care Provider] - Discharge Diet: Usual diet Discharge Activity: Increase activity as tolerated Activity Restrictions/Additional Instructions: Take medicine as prescribed. Follow-up with your surgeon as scheduled. If you continue to have problems and swelling increases please contact them and see what they like for you to do. Try to do as much activity as possible with the left leg. Coding Level of Care Code ED Car Retarder Operator for Chg Fwd Exam Comprehensive Documented by User: Masood Peralta DO 11/08/21 12:48 HPI - General Adult General: Chief complaint: Shortness of Breath/Dyspnea Stated complaint: Surgery Thursday, Hx Bloodclots, running fevor Time Seen by Provider: 11/08/21 09:36 PFSH ED PFSH: Medical History Former smoker Hypertension Left knee pain Status post stem cell injection on October 18 by sports medicine Numbness and tingling in both hands Surgical History No pertinent past surgical history Family History Father Clotting disorder On Coumadin Social History Smoking and tobacco status: former smoker Quit status (tobacco): has quit using tobacco Year quit tobacco: 2004 Former quit date comment: Hx of 0.5 PPD x 3 Years Smoking risk assessment/counseling performed?: No Alcohol intake: current Alcohol intake frequency: few times a week Counseling given: No Counseling given: No Household members: spouse Housing: House Marital status: Current occupational status: employed Current occupation: Works for [employer] History of recent travel: No Current gender identity: Male Course Vital Signs: Vital signs: Vital Signs Temperature 98.2 F 11/08/21 09:47 Pulse Rate 90 11/08/21 11:30 Respiratory Rate 20 H 11/08/21 11:30 Blood Pressure 136/96 11/08/21 11:30 Pulse Oximetry 98 11/08/21 11:30 [facility] - General Adult Medical Decision Making Postprocedural left leg swelling. Ultrasound study was negative for DVT. Patient is already on Eliquis. White count slightly elevated 12.9 which would be consistent with postprocedural elevation but went ahead and place patient on Keflex. I encouraged the patient to move extremity is much as possible and he has been holding it still slightly elevated and not ambulating. Nothing swelling is probably more related to lack of movement. Patient is follow-up with the surgeon. Chart reviewed and patient discussed with midlevel. Agree with assessment and plan. Lab Data : 11/08/21 10:06 11/08/21 10:06 Laboratory Results WBC 12.4 10^3/uL (4.0-10.0) H 11/08/21 10:06 RBC 5.27 10^6/uL (4.1-5.3) 11/08/21 10:06 Hgb 15.3 g/dL (11.7-16.6) 11/08/21 10:06 Hct 47.7 % (42.0-52.0) 11/08/21 10:06 MCV 90.5 fl (80-94) 11/08/21 10:06 MCH 29.0 pg (28.0-34.0) 11/08/21 10:06 MCHC 32.1 g/dL (30.0-36.0) 11/08/21 10:06 RDW 12.4 % (12.1-15.1) 11/08/21 10:06 Plt Count 235 10^3/cmm (130-400) 11/08/21 10:06 MPV 11.2 fL (7.4-10.4) H 11/08/21 10:06 Neut % (Auto) 69.4 % 11/08/21 10:06 Lymph % (Auto) 15.4 % 11/08/21 10:06 [place] % (Auto) 13.4 % 11/08/21 10:06 Eos % (Auto) 0.6 % 11/08/21 10:06 Baso % (Auto) 0.5 % 11/08/21 10:06 Neut # (Auto) 8.59 10^3/uL (1.8-7.7) H 11/08/21 10:06 Lymph # (Auto) 1.9 10^3/uL (0.8-4.8) 11/08/21 10:06 [place] # (Auto) 1.7 10^3/uL (0.2-0.9) H 11/08/21 10:06 Eos # (Auto) 0.1 10^3/uL (0.0-0.8) 11/08/21 10:06 Baso # (Auto) 0.1 10^3/uL (0.0-0.1) 11/08/21 10:06 Nucleated RBC % (auto) 0 % 11/08/21 10:06 Nucleated RBCs # 0.0 /100WBC 11/08/21 10:06 Sodium 136 mmol/L (136-145) 11/08/21 10:06 Potassium 4.1 mmol/L (3.5-5.1) 11/08/21 10:06 Chloride 99 mmol/L (98-107) 11/08/21 10:06 Carbon Dioxide 22 mmol/L (22-29) 11/08/21 10:06 Anion Gap 19.1 (5-19) H 11/08/21 10:06 BUN 15 mg/dL (6-20) 11/08/21 10:06 Creatinine 0.9 mg/dL (0.7-1.2) 11/08/21 10:06 GFR Calculation 89.7 mL/min (90-130) L 11/08/21 10:06 Glucose 78 mg/dL (65-115) 11/08/21 10:06 Calculated Osmolality 282 mOsm/kg (285-295) L 11/08/21 10:06 Calcium 9.7 mg/dL (8.5-10.5) 11/08/21 10:06 Discharge Plan Discharge Patient Disposition: Home Clinical Impression: Leg swelling Condition: Stable Prescriptions: New cephalexin 500 mg capsule 500 mg PO Q8H 7 Days Qty: 21 0RF No Action lisinopril 10 mg tablet 10 mg PO QAM 0RF cetirizine 10 mg tablet 10 mg PO QAM 0RF Eliquis 5 mg tablet 5 mg PO BID 90 Days Qty: 180 1RF Rx Instructions: Will take 10 mg twice a day for 7 days and then 5 mg twice a day Discharge Orders: Discharge ED (Routine); Ordered 11/08/21 Ordered By: Norman Duckworth Referrals: Manolo Norris MD [Primary Care Provider] - Discharge Diet: Usual diet Discharge Activity: Increase activity as tolerated Activity Restrictions/Additional Instructions: Take medicine as prescribed. Follow-up with your surgeon as scheduled. If you continue to have problems and swelling increases please contact them and see what they like for you to do. Try to do as much activity as possible with the left leg. Coding Level of Care Code ED Car Retarder Operator for [place] Fwd Exam Comprehensive
[2021-11-08 10:36] LABS: Basophils # 0.1 10^3/uL (0.0-0.1); Basophils % 0.5 %; Eosinophils # 0.1 10^3/uL (0.0-0.8); Eosinophils % 0.6 %; Hematocrit 47.7 % (42.0-52.0); Hemoglobin 15.3 g/dL (11.7-16.6); Lymphocytes # 1.9 10^3/uL (0.8-4.8); Lymphocytes % 15.4 %; Mean Corpuscular HGB Conc 32.1 g/dL (30.0-36.0); Mean Corpuscular Volume 90.5 fl (80-94); Mean Platelet Volume 11.2 fL (7.4-10.4); Monocytes # 1.7 10^3/uL (0.2-0.9); Monocytes % 13.4 %; Neutrophils # 8.59 10^3/uL (1.8-7.7); Neutrophils % 69.4 %; Nucleated Red Blood Cells % 0 %; Platelet Count 235 10^3/cmm (130-400); Red Blood Count 5.27 10^6/uL (4.1-5.3); Red Cell Distribution Width 12.4 % (12.1-15.1); White Blood Count 12.4 10^3/uL (4.0-10.0)
[2021-11-08 10:58] LABS: Anion Gap 19.1 (5-19); Blood Urea Nitrogen 15 mg/dL (6-20); Calcium 9.7 mg/dL (8.5-10.5); Carbon Dioxide 22 mmol/L (22-29); Chloride 99 mmol/L (98-107); Glomerular Filtration Rate 89.7 mL/min (90-130); Glucose 78 mg/dL (65-115); Osmolality Calculated 282 mOsm/kg (285-295); Potassium 4.1 mmol/L (3.5-5.1); Sodium 136 mmol/L (136-145)
[2021-11-08] MEDS: HYDROcodone-acetaminophen 7.5-325 mg Tablet 1 TAB PO (11:29)
[2021-11-08 11:30] VITALS: BP 136/96; PULSE 90; RESP 20; O2SAT 98
== END 2021-11-08 11:47 | disposition home or self-care (01) ==
PROVIDERS: Emergency Provider Nurse Practitioner Family; PCP Family Medicine
DX: M79.89 Other specified soft tissue disorders (principal); Z79.01 Long term (current) use of anticoagulants; I10 Essential (primary) hypertension; Z87.891 Personal history of nicotine dependence
CPT/HCPCS: 80048; 85025; 93971; 99283

== ENCOUNTER 2021-11-24 20:22 | Emergency (ER) | payer BC, SELFPAY ==
[2021-11-24 20:31] VITALS: BP 146/102; PULSE 82; RESP 18; TEMP 36.1; O2SAT 97; BMI 38.3
--- NOTE | 2021-11-24 20:38 | ED_ITS ---
HPI - Back Pain/Injury General: Chief Complaint: Back Pain/Injury Stated Complaint: Lower Back Pain Time Seen by Provider: 11/24/21 20:38 History of Present Illness: 51-year-old male patient comes in today with complaints of low back muscle pain and lower extremity discomfort. Patient tested positive for COVID-19 on Thursday. Patient had been ill with body aches and fevers since Thursday. Patient had a recent meniscal repair to his left knee and had been evaluated for DVT earlier in the month. 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 by sports medicine Numbness and tingling in both hands Surgical History No pertinent past surgical history Family History Father Clotting disorder On Coumadin Social History Smoking and tobacco status: former smoker Quit status (tobacco): has quit using tobacco Year quit tobacco: 2004 Former quit date comment: Hx of 0.5 PPD x 3 Years Smoking risk assessment/counseling performed?: No Alcohol intake: current Alcohol intake frequency: few times a week Counseling given: No Counseling given: No Household members: spouse Housing: House Marital status: Current occupational status: employed Current occupation: Works for [employer] History of recent travel: No Current gender identity: Male Physical Exam Const: COMMON NORMALS: alert HENMT: COMMON NORMALS: atraumatic HEAD & SCALP: atraumatic Neck/C-Spine: COMMON NORMALS: full ROM Resp: COMMON NORMALS: normal respiratory effort and clear to auscultation bilaterally AUSCULTATION: clear to auscultation bilaterally Cardio: COMMON NORMALS: regular rate and regular rhythm RATE: regular rate RHYTHM: regular rhythm GI: COMMON NORMALS: Soft to palpation and non-tender PALPATION: Yes Soft to palpation Back/Pelvis: COMMON NORMALS: thoracic and lumbar spine normal to inspection THORACIC SPINE/UPPER BACK: Yes paraspinal muscle tenderness LUMBAR SPINE/LOWER BACK: Yes paraspinal muscle tenderness Extremity: COMMON NORMALS: normal to inspection Neuro: SENSORIUM/ORIENTATION: Yes alert Psych: COMMON NORMALS: cooperative Skin: COMMON NORMALS: no rashes or lesions noted GENERAL SKIN EXAM: no rashes or lesions noted Course ED course: 2144, patient reports improvement in pain and discomfort. Patient reports he has a burning sensation to bilateral buttocks still but his discomfort is improved considerably. Patient is able to sit and rest down. We are awaiting urine analysis result. CBC and CMP were unremarkable except for some mild leukopenia. Vital Signs: Vital signs: Vital Signs Temperature 97.0 F L 11/24/21 20:31 Pulse Rate 82 11/24/21 20:31 Respiratory Rate 18 11/24/21 20:31 Blood Pressure 146/102 11/24/21: Pulse Oximetry 97 11/24/21 20:31 MDM - Back Pain/Injury Medical Decision Making 51-year-old male patient comes in today with some low back pain radiating into bilateral buttocks. Patient denies any difficulty with bowel or bladder habits. Patient did test positive for COVID-19 on Thursday. Patient reported symptoms such as fever cough and some congestion. Patient reports that he felt like he was doing better from the illness but he started having low back pain starting last night and has been unable to rest. On exam patient has some muscle tightness in bilateral paraspinous muscles of the mid to low back. No pinpoint tenderness along spinal canal. Respirations are even lungs are clear to auscultation. Abdomen soft nontender. CVA tenderness is negative. No significant swelling or redness is in the lower extremities. Differential diagnosis includes not limited to myalgias secondary to viral illness, intervertebral disc disease, facet arthropathy, renal calculi, electrolyte disturbance. CBC, CMP, and CPK were all unremarkable. Urinalysis was clear. Patient was given 4 mg of morphine, 60 mg orphenadrine, and 8 mg of dexamet hasone for lumbar radiculopathy. Patient had improvement in symptoms. We will continue patient with prednisone 20 mg twice a day for 5 days. Encourage plenty of fluids. Patient was also given a short course of hydrocodone acetaminophen No. 10 tablets, and tizanidine 4 mg every 6 hours number 14 tablets. Patient was encouraged to stay as active as possible and follow-up with primary care for further evaluation and treatment as needed. Patient reported understanding. Labs : 11/24/21 20:55 11/24/21 20: Laboratory Results WBC 4.6 10^3/uL (4.0-10.0) 11/24/21 20: RBC 5.14 10^6/uL (4.1-5.3) 11/24/21 20: Hgb 15.2 g/dL (11.7-16.6) 11/24/21 20: Hct 45.2 % (42.0-52.0) 11/24/21 20: MCV 87.9 fl (80-94) 11/24/21 20: MCH 29.6 pg (28.0-34.0) 11/24/21 20: MCHC 33.6 g/dL (30.0-36.0) 11/24/21 20: RDW 12.0 % (12.1-15.1) L 11/24/21: Plt Count 257 10^3/cmm (130-400) 11/24/21 20: MPV 11.0 fL (7.4-10.4) H 11/24/21 20: Neut % (Auto) 36.6 % 11/24/21 20: Lymph % (Auto) 46.5 % 11/24/21 20: [place] % (Auto) 13.3 % 11/24/21 20: Eos % (Auto) 2.8 % 11/24/21: Baso % (Auto) 0.4 % 11/24/21: Neut # (Auto) 1.67 10^3/uL (1.8-7.7) L 11/24/21 20: Lymph # (Auto) 2.1 10^3/uL (0.8-4.8) 11/24/21 20: [place] # (Auto) 0.6 10^3/uL (0.2-0.9) 11/24/21 20: Eos # (Auto) 0.1 10^3/uL (0.0-0.8) 11/24/21 20: Baso # (Auto) 0.0 10^3/uL (0.0-0.1) 11/24/21 20:55 Nucleated RBC % (auto) 0 % 11/24/21 20: Nucleated RBCs # 0.0 /100WBC 11/24/21 20:55 Sodium 141 mmol/L (136-145) 11/24/21 20:55 Potassium 4.6 mmol/L (3.5-5.1) 11/24/21 20:55 Chloride 102 mmol/L (98-107) 11/24/21 20:55 Carbon Dioxide 29 mmol/L (22-29) 11/24/21 20:55 Anion Gap 14.6 (5-19) 11/24/21 20:55 BUN 20 mg/dL (6-20) 11/24/21 20:55 Creatinine 1.1 mg/dL (0.7-1.2) 11/24/21 20:55 GFR Calculation 71.1 mL/min (90-130) L 11/24/21 20:55 Glucose 82 mg/dL (65-115) 11/24/21 20:55 Calculated Osmolality 294 mOsm/kg (285-295) 11/24/21 20:55 Calcium 9.4 mg/dL (8.5-10.5) 11/24/21 20:55 Total Bilirubin 0.2 mg/dL (0.15-1.2) 11/24/21 20:55 AST 26 U/L (0-40) 11/24/21 20:55 ALT 39 U/L (0-41) 11/24/21 20:55 Alkaline Phosphatase 57 IU/L (40-130) 11/24/21 20:55 Creatine Kinase 109 U/L (39-308) 11/24/21 20:55 Total Protein 7.0 g/dL (6.6-8.7) 11/24/21 20:55 Albumin 4.5 g/dL (3.5-5.2) 11/24/21 20:55 Globulin 2.5 g/dL (1.3-4.6) 11/24/21 20:55 Urine Color Yellow (Yellow) 11/24/21 21:40 Urine Appearance Clear (CLEAR) 11/24/21 21:40 Urine pH 5 (5-7) 11/24/21 21:40 Ur Specific [place] 1.020 (1.005-1.030) 11/24/21 21:40 Urine Protein Neg (Negative) 11/24/21 21:40 Urine Glucose (UA) Norm (Normal) 11/24/21 21:40 Urine Ketones Negative (Negative) 11/24/21 21:40 Urine Blood Neg (Negative) 11/24/21 21:40 Urine Nitrate Negative (Negative) 11/24/21 21:40 Urine Bilirubin Neg (Negative) 11/24/21 21:40 Urine Urobilinogen Norm mg/dL (Negative) 11/24/21 21:40 Ur Leukocyte Esterase Negative (Negative) 11/24/21 21:40 Discharge Plan Discharge Patient Disposition: Home Clinical Impression: Lumbar radiculopathy Condition: Stable Prescriptions: New hydrocodone-acetaminophen 5-325 mg tablet 1 tab PO Q6H PRN (Reason: pain (scale score 7-10)) Qty: 10 0RF prednisone 20 mg tablet 20 mg PO BID 5 Days Qty: 10 0RF tizanidine 4 mg tablet 4 mg PO Q6H PRN (Reason: muscle spasticity) Qty: 14 0RF No Action lisinopril 10 mg tablet 10 mg PO QAM 0RF cetirizine 10 mg tablet 10 mg PO QAM 0RF Eliquis 5 mg tablet 5 mg PO BID 90 Days Qty: 180 1RF Rx Instructions: Will take 10 mg twice a day for 7 days and then 5 mg twice a day Discharge Orders: Discharge ED (Routine); Ordered 11/24/21 Ordered By: Peter Bustillo Referrals: Manolo Norris MD [Primary Care Provider] - Discharge Diet: Usual diet Discharge Activity: Increase activity as tolerated Patient Instructions: Back Pain (ED), Lower Back Exercises (ED), Opioid Safety Activity Restrictions/Additional Instructions: Activity as tolerated. Gentle stretching and range of motion exercises. Take medications as directed. Drink plenty of water with medications. Follow-up with primary care for further evaluation and treatment. Return to ER for new concerns. Coding Level of Care Code ED Office Sweeper for Claudiag Fwd Exam Comprehensive
[2021-11-24 21:01] LABS: Basophils % 0.4 %; Eosinophils # 0.1 10^3/uL (0.0-0.8); Eosinophils % 2.8 %; Hematocrit 45.2 % (42.0-52.0); Hemoglobin 15.2 g/dL (11.7-16.6); Lymphocytes # 2.1 10^3/uL (0.8-4.8); Lymphocytes % 46.5 %; Mean Corpuscular HGB Conc 33.6 g/dL (30.0-36.0); Mean Corpuscular Hemoglobin 29.6 pg (28.0-34.0); Mean Corpuscular Volume 87.9 fl (80-94); Monocytes # 0.6 10^3/uL (0.2-0.9); Monocytes % 13.3 %; Neutrophils # 1.67 10^3/uL (1.8-7.7); Neutrophils % 36.6 %; Nucleated Red Blood Cells % 0 %; Platelet Count 257 10^3/cmm (130-400); Red Blood Count 5.14 10^6/uL (4.1-5.3); White Blood Count 4.6 10^3/uL (4.0-10.0)
[2021-11-24] MEDS: morphine 4 mg/mL SDV 1 mL IVP (21:10)
[2021-11-24] MEDS: orphenadrine 30 mg/mL Inj 2 mL 60 MG IVP (21:10)
[2021-11-24] MEDS: dexamethasone 4 mg/mL INJ 8 MG IVP (21:10)
[2021-11-24 21:17] LABS: Alanine Aminotransferase 39 U/L (0-41); Albumin Level 4.5 g/dL (3.5-5.2); Alkaline Phosphatase 57 IU/L (40-130); Aspartate Amino Transferase 26 U/L (0-40); Blood Urea Nitrogen 20 mg/dL (6-20); Calcium 9.4 mg/dL (8.5-10.5); Carbon Dioxide 29 mmol/L (22-29); Chloride 102 mmol/L (98-107); Creatine Phosphokinase 109 U/L (39-308); Globulin 2.5 g/dL (1.3-4.6); Glomerular Filtration Rate 71.1 mL/min (90-130); Glucose 82 mg/dL (65-115); Osmolality Calculated 294 mOsm/kg (285-295); Sodium 141 mmol/L (136-145); Total Bilirubin 0.2 mg/dL (0.15-1.2)
[2021-11-24 21:19] LABS: Anion Gap 14.6 (5-19); Potassium 4.6 mmol/L (3.5-5.1)
[2021-11-24 21:47] LABS: Add Urine Microscopic? NO; Charge for UA Resulting for Rev
[2021-11-24 21:50] LABS: Urine Appearance Clear (CLEAR); Urine Color Yellow (Yellow); pH Urine 5 (5-7)
[2021-11-24 21:51] LABS: Bilirubin Urine Neg (Negative); Blood Urine Neg (Negative); Glucose Urine UA Norm (Normal); Ketones Urine Negative (Negative); Leukocyte Esterase Urine Negative (Negative); Nitrate Urine Negative (Negative); Protein Urine Neg (Negative); Urobilinogen Urine Norm (Negative)
[2021-11-24 22:05] VITALS: BP 131/97; PULSE 87; RESP 16; O2SAT 97
== END 2021-11-24 22:06 | disposition home or self-care (01) ==
PROVIDERS: Emergency Provider Nurse Practitioner Family; PCP Family Medicine
DX: M54.16 Radiculopathy, lumbar region (principal); Z79.01 Long term (current) use of anticoagulants; I10 Essential (primary) hypertension; Z87.891 Personal history of nicotine dependence
CPT/HCPCS: 80053; 81003; 82550; 85025; 96374; 96375; 99284; J1100; J2270; J2360

== ENCOUNTER 2022-03-12 09:13 | Outpatient (CLI) | payer BC, SELFPAY ==
--- NOTE | 2022-03-12 14:19 | PFTS_ITS ---
Date of Study:03/12/22 Date of Dictation: MECHANICS: Forced vital capacity (FVC) is normal. Forced expiratory volume in one second (FEV1) is normal. FEV1/FVC is normal. FLOW VOLUME LOOP: Normal. LUNG VOLUMES: Total lung capacity (TLC) is normal. Residual volume (RV) is normal. DIFFUSING CAPACITY FOR CARBON MONOXIDE: Normal. INTERPRETATION: The prebronchodilator spirometry is normal. No postbronchodilator spirometry was performed. Lung volumes are normal. Gas exchange (DLCO) is normal. MTDD
== END 2022-03-12 09:14 | disposition home or self-care (01) ==
PROVIDERS: PCP Family Medicine; Visit Provider Internal Medicine Medical Oncology
DX: I82.409 Acute embolism and thrombosis of unspecified deep veins of unspecified lower extremity (principal); I26.99 Other pulmonary embolism without acute cor pulmonale; D68.51 Activated protein C resistance; R06.02 Shortness of breath; R53.83 Other fatigue
CPT/HCPCS: 71275; 94010; 94726; 94729

== ENCOUNTER 2022-03-12 10:30 | Oncology outpatient (recurring) (ONCR) | payer BC, SELFPAY ==
[2022-02-21 11:38] LABS: Basophils % 0.5 %; Eosinophils # 0.2 10^3/uL (0.0-0.8); Eosinophils % 1.9 %; Hematocrit 45.1 % (42.0-52.0); Hemoglobin 15.2 g/dL (11.7-16.6); Lymphocytes # 2.3 10^3/uL (0.8-4.8); Lymphocytes % 27.7 %; Mean Corpuscular HGB Conc 33.7 g/dL (30.0-36.0); Mean Corpuscular Hemoglobin 30.2 pg (28.0-34.0); Mean Corpuscular Volume 89.7 fl (80-94); Mean Platelet Volume 11.2 fL (7.4-10.4); Monocytes # 0.9 10^3/uL (0.2-0.9); Monocytes % 10.8 %; Neutrophils # 4.92 10^3/uL (1.8-7.7); Neutrophils % 58.9 %; Nucleated Red Blood Cells % 0 %; Platelet Count 270 10^3/cmm (130-400); Red Blood Count 5.03 10^6/uL (4.1-5.3); Red Cell Distribution Width 12.9 % (12.1-15.1); White Blood Count 8.4 10^3/uL (4.0-10.0)
[2022-02-21 11:45] LABS: Erythrocyte Sedimentation Rate 2 mm/hr (0-10)
[2022-02-21 12:12] LABS: Alanine Aminotransferase 35 U/L (0-41); Albumin Level 4.4 g/dL (3.5-5.2); Alkaline Phosphatase 58 IU/L (40-130); Anion Gap 12.3 (5-19); Aspartate Amino Transferase 25 U/L (0-40); Blood Urea Nitrogen 18 mg/dL (6-20); Calcium 8.9 mg/dL (8.5-10.5); Carbon Dioxide 27 mmol/L (22-29); Chloride 101 mmol/L (98-107); Globulin 2.7 g/dL (1.3-4.6); Glomerular Filtration Rate 79.4 mL/min (90-130); Glucose 75 mg/dL (65-115); Osmolality Calculated 283 mOsm/kg (285-295); Potassium 4.3 mmol/L (3.5-5.1); Sodium 136 mmol/L (136-145); Total Bilirubin 0.4 mg/dL (0.15-1.2); Total Protein 7.1 g/dL (6.6-8.7)
[2022-02-21 12:13] LABS: Vitamin B12 596 pg/mL (232-1245)
[2022-02-21 12:19] LABS: D Dimer <= 0.27 ug/mIFEU (0-0.59)
--- NOTE | 2022-02-27 10:30 | XR_ITS ---
WS: [id number] Exam: XR chest 2V* [id number] Date/Time of Exam: 02/27/2022 10:36 AM Reason For Exam: shortness of breath, fatigue Comparison 08/26/2021. Findings: The lungs are clear and fully expanded. Costophrenic angles are sharp. No infiltrates. Bronchovascula r relief appears normal. Cardiac silhouette is unremarkable. Bony elements are intact. XR/XR chest 2V* [id number] IMPRESSION: Unremarkable chest radiograph.
[2022-03-12] MEDS: iohexol 350 mg/mL 100 mL Btl IV (10:07)
--- NOTE | 2022-03-12 10:30 | CT_ITS ---
WS: [id number] CTA THORACIC TECHNIQUE: Contrast enhanced CTA of the thoracic aorta with coronal and sagittal reformatted images a nd maximum intensity projection (MIP) images. CLINICAL INFORMATION: Shortness of breathe, extensive PE history COMPARISON: CTA January 24, 2021 DLP: 525.[address] scans at [facility] use at least one of these dose optimization techniques: automated e xposure control; mA and/or kV adjustment per patient size (includes targeted exams where dose is matc hed to clinical indication); or iterative reconstruction. FINDINGS: Proximal main pulmonary arteries are normal. Segmental and subsegmental pulmonary arteries. No eviden ce of pulmonary embolus.Normal caliber thoracic aorta. No mediastinal or hilar lymphadenopathy. No ax illary lymphadenopathy. Adrenal glands are normal. Normal GE junction. Hypertrophic changes lower thoracic spine. No acute pulmonary infiltrates. Calcified granuloma LEFT lower lobe. Bibasilar atelectasis. CT/CT angio chest [id number] IMPRESSION: 1. No evidence of pulmonary embolus. 2. No acute pulmonary infiltrates. 3. No mediastinal or hilar lymphadenopathy.
== END 2022-03-12 23:59 | disposition home or self-care (01) ==
LOC: RT 03-13 00:01 → RAD 03-13 00:02 → ONCMED 04-03 10:25
PROVIDERS: PCP Family Medicine; Visit Provider Internal Medicine Medical Oncology
DX: Z53.9 Procedure and treatment not carried out, unspecified reason (principal)
CPT/HCPCS: 36415; 71046; 71275; 80053; 82607; 84443; 85025; 85378; 85651

== ENCOUNTER → 2022-03-18 14:03 | Outpatient (BNVA) | payer BC, SELFPAY | PROVIDERS: PCP Family Medicine; Visit Provider Internal Medicine Critical Care Medicine | DX: R06.02 Shortness of breath (principal); G47.10 Hypersomnia, unspecified; I26.99 Other pulmonary embolism without acute cor pulmonale | CPT/HCPCS: 36415; 84443 ==

== ENCOUNTER 2022-05-26 13:00 | Outpatient (CLI) | payer BC, SELFPAY | END 2022-05-26 13:01 | disposition home or self-care (01) | LOC: SLEEP 05-27 10:26 | PROVIDERS: PCP Family Medicine; Visit Provider Internal Medicine Critical Care Medicine | DX: G47.10 Hypersomnia, unspecified (principal) | CPT/HCPCS: G0399 ==

== ENCOUNTER 2023-01-26 14:35 | Oncology outpatient (recurring) (ONCR) | payer BC, SELFPAY ==
[2023-01-26 15:36] LABS: Basophils # 0.1 10^3/uL (0.0-0.1); Basophils % 0.7 %; Eosinophils # 0.2 10^3/uL (0.0-0.8); Eosinophils % 2.2 %; Hematocrit 43.8 % (42.0-52.0); Hemoglobin 14.6 g/dL (11.7-16.6); Lymphocytes # 2.4 10^3/uL (0.8-4.8); Lymphocytes % 27.4 %; Mean Corpuscular HGB Conc 33.3 g/dL (30.0-36.0); Mean Corpuscular Hemoglobin 29.4 pg (28.0-34.0); Mean Corpuscular Volume 88.3 fl (80-94); Mean Platelet Volume 10.6 fL (7.4-10.4); Monocytes # 0.9 10^3/uL (0.2-0.9); Monocytes % 10.1 %; Nucleated Red Blood Cells % 0 %; Platelet Count 265 10^3/cmm (130-400); Red Blood Count 4.96 10^6/uL (4.1-5.3); Red Cell Distribution Width 12.5 % (12.1-15.1); White Blood Count 8.6 10^3/uL (4.0-10.0)
[2023-01-26 15:41] LABS: Erythrocyte Sedimentation Rate 7 mm/hr (0-10)
[2023-01-26 16:06] LABS: Alanine Aminotransferase 35 U/L (0-41); Albumin Level 4.3 g/dL (3.5-5.2); Alkaline Phosphatase 65 U/L (40-130); Anion Gap 13.2 (5-19); Aspartate Amino Transferase 26 U/L (0-40); Blood Urea Nitrogen 20 mg/dL (6-20); Calcium 8.8 mg/dL (8.5-10.5); Carbon Dioxide 24 mmol/L (22-29); Chloride 103 mmol/L (98-107); Globulin 2.6 g/dL (1.3-4.6); Glomerular Filtration Rate 79.1 mL/min (90-130); Glucose 81 mg/dL (65-115); NT Pro B Type Natriuretic Pept 36 pg/mL (0-125); Osmolality Calculated 284 mOsm/kg (285-295); Potassium 4.2 mmol/L (3.5-5.1); Sodium 136 mmol/L (136-145); Total Bilirubin 0.3 mg/dL (0.15-1.2); Total Protein 6.9 g/dL (6.6-8.7)
[2023-01-26 17:55] LABS: D Dimer 0.31 ug/mIFEU (0-0.59)
== END 2023-02-01 23:59 | disposition home or self-care (01) ==
LOC: ONCMED 14:35
PROVIDERS: PCP Family Medicine; Visit Provider Internal Medicine Medical Oncology
DX: D68.51 Activated protein C resistance (principal); I26.99 Other pulmonary embolism without acute cor pulmonale; R06.02 Shortness of breath
CPT/HCPCS: 36415; 80053; 83880; 85025; 85378; 85651; 86140

== ENCOUNTER 2023-02-19 07:00 | Outpatient (CLI) | payer BC, SELFPAY ==
--- NOTE | 2023-02-19 07:15 | USCV_ITS ---
Camacho Zuleta Age: 52 Gender: M : 1970 Exam Date: 02/19/2023 07:28 Ordering Phys: Phillip Dean MD Technologist: Han Camargo Exam Location: [facility] [place] Indication: Chest pain and shortness of breath BP: 143 / 98 HR: 72 Rhythm: Sinus Technical Quality: Adequate MEASUREMENTS (Male / Female) Normal Values 2D ECHO LVOT Diameter 2.1 cm LV Ejection Fraction MOD 2C 68.9 % LV Ejection Fraction 2C AL 68.5 % LA Diameter 4.2 cm LA Width 3.3 cm LA Height 4.1 cm RA Width 3.6 cm RA Height 4.8 cm Aorta at Sinotubular Diameter 2.9 cm IVC Diameter 1.7 cm M-MODE Aortic Annulus Diameter 3.3 cm LA Ao Ratio MM 1.3 MV E Point Septal Separation 0.7 cm DOPPLER AV Peak Velocity 129.0 cm/s LVOT Peak Velocity 110.0 cm/s AV Area Cont Eq vti 2.7 cm squared AV Area Cont Eq pk 2.9 cm squared MV Peak Velocity 70.0 cm/s MV Area PHT 3.9 cm squared Mitral E to A Ratio 1.1 MV E' Velocity 36.0 cm/s Mitral E to MV E' Ratio 5.3 Mitral E to LV E' Lateral Ratio 4.6 Mitral E to LV E' Septal Ratio 6.3 TR Peak Velocity 270.0 cm/s TR Peak Gradient 29.2 mmHg TR Mean Velocity 206.6 cm/s TR Mean Gradient 18.3 mmHg TR Velocity Time Integral 64.5 cm Right Atrial Pressure 3.0 mmHg Pulmonary Artery Systolic Pressu 32.2 mmHg PV Peak Velocity 108.0 cm/s RV Acceleration Time 0.1 s RV Ejection Time 0.3 s RV AcT/ET 0.3 FINDINGS Left Ventricle Normal left ventricular size, systolic function and wall thickness, with no regional wall motion abnormalities. Left ventricular ejection fraction is estimated at 60 %. Normal diastolic function. Right Ventricle Normal right ventricular size and systolic function. Right ventricular systolic pressure 32 mmHg. Right Atrium Normal right atrial size. Left Atrium Normal left atrial size. Mitral Valve Mildly thickened mitral valve. No mitral valve stenosis. Trace mitral valve regurgitation. Aortic Valve Structurally normal trileaflet aortic valve. No aortic valve stenosis. No aortic valve regurgitation. Tricuspid Valve Structurally normal tricuspid valve. No tricuspid valve stenosis. Trace to mild tricuspid valve regurgitation. Pulmonic Valve Structurally normal pulmonic valve. No pulmonary valve stenosis. Trace pulmonary valve regurgitation. Pericardium No pericardial effusion. Aorta Normal size aortic root and proximal ascending aorta. IVC Normal IVC dimension with >50% respiratory change of the inferior vena cava. CONCLUSIONS 1. Normal left ventricular size, systolic function and wall thickness, with no regional wall motion abnormalities. Left ventricular ejection fraction is estimated at 60 %. Normal diastolic function. 2. No significant change when compared to study dated 03/28/2021. Maribel Oakes MD (Electronically Signed) Final Date: 19 Feb 2023 11:07 S
== END 2023-02-19 07:01 | disposition home or self-care (01) ==
PROVIDERS: PCP Family Medicine; Visit Provider Internal Medicine Medical Oncology
DX: R06.02 Shortness of breath (principal); R07.9 Chest pain, unspecified
CPT/HCPCS: 93306

== ENCOUNTER 2023-04-30 14:21 | Oncology outpatient (recurring) (ONCR) | payer BC, SELFPAY | END 2023-05-04 23:59 | disposition home or self-care (01) | PROVIDERS: PCP Family Medicine; Visit Provider Internal Medicine Medical Oncology | DX: Z53.9 Procedure and treatment not carried out, unspecified reason (principal) ==